=== PATIENT | male | born 1965 | race Hispanic/Latino ===

== ENCOUNTER 2016-12-27 18:01 | Inpatient (IN) | payer OTHER ==
[~2016-12-27] VITALS: Ht 165.1 cm; Wt 65.8 kg
[~2016-12-27 18:01] MED LIST: ALPRAZOLAM0.5 M3 PO; ALPRAZOLAM2 MG PO; CHLORDIAZEPOXID25 M1; LIBRIUM10 MG PO; LIBRIUM25 MG PO; MULTIVITAMIN1 TAB PO; NORCO 325 MG-51 TAB PO; OMEPRAZOLE40 MG PO; OXYCODONE5 MG PO; SIMVASTATIN20 MG PO
--- NOTE | 2016-12-27 18:03 | NUR ---
PER SON, PT HAS BEEN CONFUSED, NOT EATING, DRINKING, OR GETTING OOB X 3-4 WEEKS. STATES HE IS AN ALCOHOLIC, NOT DRINKING X 2 WEEK, FELL 2 WEEKS AGO, C/O PAIN IN R RIBS WITH SOB. TRIAGE NOTE WRITTEN BY MEMO SIMON
--- NOTE | 2016-12-27 18:29 | ED DYSPNEA/ASTHMA COMPLAINT ---
History of Present Illness General Chief Complaint: ETOH/Drug Related Complaint Stated Complaint: GOING THROUGH WITHDRAWL, ETOH AND ?SUBSTANCES Source: patient, family Exam Limitations: confusion Vital Signs & Intake/Output Vital Signs & Intake/Output Vital Signs Date Time Temp Pulse Resp B/P B/P Pulse O2 O2 Flow FiO2 Mean Ox Delivery Rate 12/27 2120 98.1 154 24 156/82 87 Non 100% ReBreather 12/27 2102 87 Non 100% ReBreather 12/27 1808 98.4 132 36 97/61 79 Room Air Allergies Coded Allergies: NO KNOWN ALLERGIES (12/03/14) Triage Note: PER SON, PT HAS BEEN CONFUSED, NOT EATING, DRINKING, OR GETTING OOB X 3-4 WEEKS. STATES HE IS AN ALCOHOLIC, NOT DRINKING X 2 WEEK, FELL 2 WEEKS AGO, C/O PAIN IN R RIBS WITH SOB. Triage Nurses Notes Reviewed? yes HPI: Patient prior in by his son for increasing confusion, weakness, fatigue as well as anorexia for the past 3 weeks. Patient states that he isn't alcohol, or started drinking a few months ago but stopped drinking approximately one month ago. His son concurs that he has not seen him touch any alcohol within the past 3 weeks. Patient states that he has been having chest pain for the past 2 weeks constant. Patient cannot describe the pain. Patient thinks that the pain started when he fell but isn't sure. His son did not witness the fall. Patient states that he has been feeling short of breath for the past few weeks as well. Patient is a smoker however stop smoking 1-1/2 weeks ago because of the shortness of breath and chest pain. Patient has also been having a nonproductive cough for the past few weeks. Patient is a poor historian. Past History Travel History Traveled to [place] past 21 day No Medical History Any Pertinent Medical History? 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 Family History Hx Contributory? No Review of Systems Review of Systems Constitutional: Reports: see HPI, weakness. Respiratory: Reports: see HPI, cough. Cardiovascular: Reports: see HPI, chest pain. Neurological/Psychological: Reports: see HPI, confusion. Physical Exam Physical Exam General Appearance: well developed/nourished, awake, anxious, severe distress Head: atraumatic, normal appearance Eyes: Bilateral: PERRL, EOMI. Ears, Nose, Throat: DRY MUCOSA Neck: normal inspection, supple, full range of motion, JVD Respiratory: crackles (ALL DURÁN), respiratory distress Cardiovascular: normal peripheral pulses, tachycardia Gastrointestinal: normal bowel sounds, soft, non-tender, no organomegaly Extremities: HEALING WOUND RIGHT WALDRON, NO SIGNS OF INFECTION Neurologic/Psych: no motor/sensory deficits, awake Skin: normal color, warm/dry Lymphatic: no anterior cervical linnea Core Measures ACS in differential dx? No Severe Sepsis Present: Yes BC x2: Yes Lactic Acid x2: Yes IV ABX Broad Spectrum: Yes NS/LR Started: Yes Septic Shock Present: No Progress Differential Diagnosis: AMI, bronchitis, CHF, COPD, pulmonary embolism, pneumonia, pneumothorax, rib fracture, SEPSIS Plan of Care: Orders Procedure Date/time Status Admit to inpatient 12/27 2214 Active LACTIC ACID 12/27 2134 Active AMMONIA 12/27 1945 Complete Add-on Test (ER Only) 12/27 193 Active Garcia, Insertion/Removal/Asses 12/27 1906 Active CULTURE,URINE 12/27 1906 Active MAGNESIUM 12/27 1836 Complete BLOOD CULTURE 12/27 1834 Active LACTIC ACID 12/27 1834 Complete ARTERIAL BLOOD GAS (GEN) 12/27 1828 Complete Telemetry/Insurance Billing Specialist 12/27 1828 Active URINE DRUGS OF ABUSE 12/27 1828 Active URINALYSIS 12/27 1828 Active TROPONIN LEVEL 12/27 1828 Complete ETHANOL 12/27 1828 Complete COMPREHENSIVE METABOLIC PANEL 12/27 1828 Complete CBC WITHOUT DIFFERENTIAL 12/27 1828 Complete B-TYPE NATRIURETIC PEP (BNP) 12/27 1828 Complete ACETONE 12/27 1828 Complete EKG 12/27 1828 Active Current Medications Sig/Mimi Start time Last Medication Dose Stop Time Status Admin Ampicillin Sodium/ 3,000 MG ONCE ONE 12/27 2214 UNVr Sulbactam Sodium 12/27 2244 (Unasyn) Sodium Chloride 100 ML (Normal Saline 0.9%) Lorazepam 2 MG ONE ONE 12/27 2199 UNVr (Ativan) 12/27 2200 Lorazepam 2 MG ONE ONE 12/27 2114 UNVr 12/27 (Ativan) 12/27 Cyanocobalamin/ 1 BAG ONCE ONE 12/27 1929 AC 12/27 Thiamine/Pyridoxine 12/28 (Vitamin in I.V.) Dextrose/Water 1,000 ML (D5W 1000) Laboratory Tests 12/27/16 1950: Anion Gap 16, Estimated GFR > 60, BUN/Creatinine Ratio 25.0, Glucose 105 H, Calcium 8.5, Magnesium 2.4 H, Total Bilirubin 0.8, AST 76 H, ALT 70, Alkaline Phosphatase 122, Troponin I 0.01, Mnz-V-[id number] Pept 1060 H, Total Protein 6.6, Albumin 2.9 L, Globulin 3.7, Albumin/Globulin Ratio 0.8 L, Serum Alcohol < 10.0, Acetone Level NEGATIVE 12/27/161944: Ammonia 35 H 12/27/161844: pH 7.43, pCO2 34 L, pO2 61 L, HCO3 22, ABG O2 Sat (Measured) 89.0 L, Carboxyhemoglobin 0.7 L, O2 Concentration % 4.5L, O2 Delivery Method NC, Phlebotomy Draw Site RIGHT RADIAL 12/27/161835: Lactic Acid 7.9 H, CBC w Diff MAN DIFF ORDERED, RBC 3.36 L, MCV 93.3, MCH 30.1 , RDW 14.0, MPV 9.5, Gran % 87.6 H, Lymphocytes % 10.2 L, Monocytes % 1.4 L, Eosinophils % 0.7, Basophils % 0.1, Absolute Granulocytes 7.8 H, Segmented Neutrophils 60, Band Neutrophils 21 H, Absolute Lymphocytes 0.9 L, Lymphocytes 17 L, Absolute Monocytes 0.1 L, Eosinophils 2, Absolute Eosinophils 0.1, Absolute Basophils 0, Platelet Estimate INCREASED, Normocytic RBCs VERIFIED, Hypochromic-Microcytic 1+, PUBS MCHC 32.2 L Microbiology 12/27 1944 BLOOD: Blood Culture - RECD 12/27 1921 BLOOD: Blood Culture - RECD 12/27 1905 URINE ROUT: Urine Culture - ORD Diagnostic Imaging: Viewed by Me: Radiology Read. Discussed w/RAD: Radiology Read. Radiology Impression: PATIENT: MAXIME JOYNER PRESENT AGE: 51 PATIENT ACCOUNT NO: [id number] : 66 LOCATION: [facility] ORDERING PHYSICIAN: MARY ALVAREZ MD SERVICE DATE: 12/27/16 EXAM TYPE: CAT - CT HEAD WO IV CONTRAST EXAMINATION: CT HEAD WITHOUT CONTRAST CLINICAL INFORMATION: Confusion. Fall. COMPARISON: CT head 11/08/2014 TECHNIQUE: Contiguous axial imaging was performed from the skull base to vertex without intravenous administration of contrast. Coronal reformatted images performed at CT scanner DLP: 629.49 mGy-cm FINDINGS: There is no evidence of acute intracranial hemorrhage or territorial infarction. No abnormal mass effect or midline shift is seen. Mancera to white matter differentiation is well preserved. No extra-axial fluid collections are identified. The ventricles are normal in size. There is no abnormal attenuation within the brain parenchyma. The osseous structures and soft tissues are normal. The mastoid air cells and visualized portions of the paranasal sinuses are well aerated. IMPRESSION: No acute intracranial pathology. 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 <Electronically signed in Other Vendor System> SIGNED BY: VIRGINIA CARDOSO MD 12/27/162200 CXR Impression: PATIENT: MAXIME JOYNER PRESENT AGE: 51 PATIENT ACCOUNT NO: [id number] : 66 LOCATION: [facility] ORDERING PHYSICIAN: MARY ALVAREZ MD SERVICE DATE: 12/27/16 EXAM TYPE: RAD - XRY- PORTABLE CHEST XRAY EXAMINATION: PORTABLE CHEST 1 VIEW CLINICAL INFORMATION: HYPOXIA. COMPARISON: 01/21/2006. TECHNIQUE: Portable frontal view of the chest was obtained. FINDINGS: This is a very usual examination. The patient is status post sternotomy and with status post sternotomy on the 2005 study which is unusual for patient's age. There is now in an unusual appearance to the right hemithorax. There appears to be 2 large loculated probable hydropneumothorax components along the lateral aspect of the hemithorax with the more superior one measuring up to 11 cm in size in the more inferior one measuring approximately 11.3 cm in size. This appeared relatively thick walled and although they could represent large cavitary parenchymal lesions the peripheral location suggests this could represent pleural-based collections. There is a focal opacity at the right base possibly due to associated atelectasis and volume loss. There is blunting of the right lateral costophrenic angle possibly due to small layering effusion as well. There is no significant shift of midline structures. Minimal contralateral left basilar atelectasis is seen. No overt edema. No apical pneumothorax. Left humeral neck fracture was noted on the 2014 study. There is associated left mid clavicular fracture as well. Extensive degenerative changes have progressed in the contralateral right AC joint. IMPRESSION: There is a very usual appearance to the right chest. I'm uncertain if these represent large cavitary lesions or large pleural-based loculated hydropneumothoraces. Clinical correlation would be recommended. CT scan of the chest may be helpful for evaluating further if needed. No overt edema. Patient status post sternotomy but this is not changed in appearance from the 2006 study. Additional bony changes as described. 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 <Electronically signed in Other Vendor System> SIGNED BY: JASMIN WILLSON MD 12/27/161927 Initial ED EKG: SINUS TACHYCARDIA WITH NONSPECIFIC st-t CHANGES AND MULTIFOCAL pvcS. Rhythm Strip: sinus tachycardia Comments: Holding off on IV fluids given the crackles heard in all lung durán and hypoxia pending his chest x-ray. Chest x-ray does not show any evidence of pulmonary edema. Aggressive hydration started. Awaiting renal function and then we'll order CT scans of his chest at and pelvis. Would prefer to do those scans with IV contrast. Patient's heart rate and blood pressure improved after IV Ativan. Chest x-ray and CAT scan results and discussed with radiologist. Artifact on the abdominal pelvic CT causing the slight look of free air however the radiologist does not feel that there is free air. His CAT scan of his chest is consistent with aspiration pneumonia with lung abscesses. Departure Departure Disposition: STILL A PATIENT Condition: Critical Clinical Impression Primary Impression: Aspiration pneumonia Secondary Impressions: Acute respiratory failure with hypoxia, Alcohol withdrawal, Lactic acidosis, Lung abscess Referrals: LINNETTE BAUM MD (PCP/Family) Departure Forms: Customer Survey General Discharge Information Admission Note Spoke With: CARISSA SAUNDERS MD Documentation of Exam: Documentation of any treatments & extenuating circumstances including Concerns Regarding Discharge (functional status, medication knowledge or non-compliance, living conditions, etc.) that warrant an admission rather than observation: [ICU ADMISSION, IV ABX, INTERVENTIONAL RADIOLOGY CONSULTATION, PULM CONSULTATION, IV FLUIDS, IV ATIVAN, ID CONULTATION] Critical Care Note Critical Care Note Critical Care Time: mins: (120 MIN)
[2016-12-27 18:46] LABS: ABSOLUTE BASOPHIL COUNT 0 /CUMM (0.0-0.2); ABSOLUTE EOSINOPHIL COUNT 0.1 /CUMM (0.0-0.7); ABSOLUTE GRANULOCYTE CT 7.8 /CUMM (1.4-6.5); ABSOLUTE LYMPH COUNT 0.9 /CUMM (1.2-3.4); ABSOLUTE MONOCYTE COUNT 0.1 /CUMM (0.10-0.60); BASOPHIL % 0.1 % (0.0-2.0); EOSINOPHIL % 0.7 % (0-5); GRANULOCYTE % 87.6 % (42.2-75.2); HEMATOCRIT 31.4 % (42-52); MEAN CORPUSCULAR HGB 30.1 PG (27.0-31.0); MEAN CORPUSCULAR HGB CONC 32.2 G/DL (33.0-37.0); MEAN CORPUSCULAR VOLUME 93.3 FL (80.0-94.0); MEAN PLATELET VOLUME 9.5 FL (7.4-10.4); PLATELET COUNT 432 /CUMM (130-400); RED BLOOD CELL CT 3.36 /CUMM (4.70-6.10); WHITE BLOOD CELL COUNT 8.9 /CUMM (4.8-10.8)
--- NOTE | 2016-12-27 18:52 | NUR ---
PT BOUGHT TO ROOM # 9 FOR EVALUATION AND SEEN BY DR ALVAREZ 20 G SHEYLA PLACED IN RAC. BLOOD DRAWN DIRECTED BY SAME
--- NOTE | 2016-12-27 19:01 | NUR ---
ABG'S PERFORMED BY RESP THERAPIST PT CONNECTED TO CM - ST PT ON 5L O2 VIA N/C.
--- NOTE | 2016-12-27 19:10 | NUR ---
CRITICAL TEST RESULTS [id number] MAXIME JOYNER 51 M TESTS AND RESULTS: LACTIC 7.9 Results received and read back by: JAMES YI Results received date and time: 12/27/161909 The following provider was notified of the results, and read the results back: ANTONIO 1909 Notified date and time: 12/27/16 at 1910
--- NOTE | 2016-12-27 19:28 | RADIOLOGY REPORT ---
EXAMINATION: PORTABLE CHEST 1 VIEW CLINICAL INFORMATION: HYPOXIA. COMPARISON: 01/21/2006. TECHNIQUE: Portable frontal view of the chest was obtained. FINDINGS: This is a very usual examination. The patient is status post sternotomy and with status post sternotomy on the 2005 study which is unusual for patient's age. There is now in an unusual appearance to the right hemithorax. There appears to be 2 large loculated probable hydropneumothorax components along the lateral aspect of the hemithorax with the more superior one measuring up to 11 cm in size in the more inferior one measuring approximately 11.3 cm in size. This appeared relatively thick walled and although they could represent large cavitary parenchymal lesions the peripheral location suggests this could represent pleural-based collections. There is a focal opacity at the right base possibly due to associated atelectasis and volume loss. There is blunting of the right lateral costophrenic angle possibly due to small layering effusion as well. There is no significant shift of midline structures. Minimal contralateral left basilar atelectasis is seen. No overt edema. No apical pneumothorax. Left humeral neck fracture was noted on the 2014 study. There is associated left mid clavicular fracture as well. Extensive degenerative changes have progressed in the contralateral right AC joint. IMPRESSION: There is a very usual appearance to the right chest. I'm uncertain if these represent large cavitary lesions or large pleural-based loculated hydropneumothoraces. Clinical correlation would be recommended. CT scan of the chest may be helpful for evaluating further if needed. No overt edema. Patient status post sternotomy but this is not changed in appearance from the 2006 study. Additional bony changes as described.
--- NOTE | 2016-12-27 19:40 | NUR ---
IV OF N/S STARTED W/O X 3 LITERS
--- NOTE | 2016-12-27 20:10 | NUR ---
22 G SHEYLA PLACED IN LEFT WRIST BLOOD CULTURES DRAWN DIRECTED BLOOD DRAWN FOR AMMONIA LEVEL PCXR DONE
--- NOTE | 2016-12-27 21:35 | NUR ---
PT MEDICATED WITH 2 MG ATIVAN IVP AND STARTED ON BANANNA BAG DIRECTED.
--- NOTE | 2016-12-27 22:01 | CT SCAN REPORT ---
EXAMINATION: CT HEAD WITHOUT CONTRAST CLINICAL INFORMATION: Confusion. Fall. COMPARISON: CT head 11/08/2014 TECHNIQUE: Contiguous axial imaging was performed from the skull base to vertex without intravenous administration of contrast. Coronal reformatted images performed at CT scanner DLP: 629.49 mGy-cm FINDINGS: There is no evidence of acute intracranial hemorrhage or territorial infarction. No abnormal mass effect or midline shift is seen. Mancera to white matter differentiation is well preserved. No extra-axial fluid collections are identified. The ventricles are normal in size. There is no abnormal attenuation within the brain parenchyma. The osseous structures and soft tissues are normal. The mastoid air cells and visualized portions of the paranasal sinuses are well aerated. IMPRESSION: No acute intracranial pathology.
--- NOTE | 2016-12-27 22:11 | CT SCAN REPORT ---
EXAMINATION: CT CHEST, ABDOMEN AND PELVIS WITH CONTRAST. CLINICAL INFORMATION: SEPSIS: HYPOXIA, ABN CXR. COMPARISON: Chest x-ray earlier today. TECHNIQUE: Multidetector volumetric imaging was performed from the thoracic inlet through the pubic symphysis following administration of 95 ml of Optiray 320. Sagittal and coronal reformatted images were obtained on the technologist workstation. DLP: 384 mGy-cm FINDINGS: CHEST: LUNG: This is a markedly abnormal study. Focal consolidation in the right base is seen with air bronchograms and more complex irregular air densities in the medial aspect of the right lower lobe concerning for more focal abscess as these irregular air collections do not definitively following the expected course of the bronchi. There is more patchy airspace disease in the contralateral left base. Likely loculated hydropneumothorax secondary to empyema described below MEDIASTINUM: The mediastinum is unremarkable. The central vascular structures are unremarkable. No hilar or mediastinal lymphadenopathy. PERICARDIUM/PLEURA: Complex loculated air-filled thick-walled collections in the right pleural surface with air-fluid levels suggesting loculated complex collection is likely secondary to empyema in this setting. These do not appear to represent thick-walled parenchymal lung cavities but more likely loculated air-fluid components within the pleural space adjacent to this very abnormal lung parenchyma. CHEST WALL/AXILLA: Unremarkable. ABDOMEN/PELVIS: PERITONEAL SPACE:No significant free air or free fluid identified. LIVER, GALLBLADDER, BILIARY TREE: The liver is normal in size, shape, and attenuation. No focal hepatic lesion or biliary ductal dilatation is present. The gallbladder is unremarkable with no evidence of radiopaque gallstones, gallbladder wall thickening, or obvious pericholecystic inflammatory changes. PANCREAS: Unremarkable. SPLEEN: Unremarkable. ADRENAL GLANDS: Unremarkable. KIDNEYS AND URETERS: The kidneys are normal in size, shape, and attenuation. No hydronephrosis, hydroureter, or calculi seen. No perinephric stranding. BLADDER: Decompressed with Garcia catheter GASTROINTESTINAL TRACT: Scattered colonic diverticulosis but no evidence for diverticulitis. Normal-appearing appendix in the right lower quadrant. Colon is relatively decompressed. Small bowel unremarkable ABDOMINAL WALL: No significant hernia is appreciated. LYMPHOVASCULAR STRUCTURES: Vascular calcification in the aorta iliac system. PELVIC VISCERA: Unremarkable. OSSEUS STRUCTURES: Right hip hardware. No acute bony abnormality. Patient is status post sternotomy. IMPRESSION: Very abnormal appearance to the chest. There is complex consolidation and irregular aeration more so in the right base with air bronchograms and more irregular air collection suggesting possible parenchymal lung abscess in the medial aspect of the right lower lobe. There is associated complex fluid and air-fluid levels in loculated pockets of the right pleural surface likely secondary to empyema in this setting. Clinical correlation would be needed.
--- NOTE | 2016-12-27 22:16 | NUR ---
PT TO AND BACK FROM CT SCAN.
--- NOTE | 2016-12-27 22:25 | NUR ---
HR DECREASED FROM 154 TO 133 AFTER ADMINISTRATION OF ATIVAN PT MEDICATED WITH ADDITIONAL 2 MG ATIVAN IVP AND MEDICATED WITH 3 G UNASYN IN 100 ML OVER 30 MINUTES
--- NOTE | 2016-12-27 22:44 | NUR ---
PT INCONTINENT OF STOOL. PT CL;EANED, TURNED, CHANGED AND RE-POSITIONED.
[2016-12-27] MEDS ORDERED: CHLORDIAZEPOXID25 M3 PO (23:16)
--- NOTE | 2016-12-27 23:43 | History & Physical ---
ROSY KATE 12/27/16 2342: General Information and HPI Source of Information: patient, family Exam Limitations: no limitations History of Present Illness: He is 51-year-old man with past medical history of anxiety/depression, insomnia, alcohol abuse/binge drinking and smoking (10 cig/day, quit 2 weeks ago) presented to ER with complaint of fatigue, generalized weakness, productive cough with yellow phlegm, chills, bad breath, anorexia and some weight loss. Information was obtained from both patient and his son. According to son he went to [place] alone about 3 weeks ago for few days and since he has come back he is not feeling well. Patient reports chest pain with cough, SOB and palpitations. He also reports PND but no orthopnea. He denies hemoptysis, nausea, vomiting, abdominal pain, urinary symptoms, leg swelling. He reports recent diarrhea and stool was soft and nonbloody. Denies sick contacts around him. According to son this morning he was vomiting after eating his breakfast. Son is not sure whether he was using illicit drugs or not. Patient lives with his family, used to work in [employer] for 28 years, sexually active and monogamous with his . Family history of hypertension and stroke. No family history of cancer. Patient also has history of abusing his psych medications. According to patient he has lost almost 13 pounds in 3 weeks and it was unintentional. He denies night sweats. 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 MOTHER (HTN). Psychosocial History Where do you live? Home Who Do You Live With? family Services at Home: None Primary Language: German Smoking Status: Former Smoker ETOH Use: alcoholic Illicit Drug Use: denies illicit drug use Review of Systems Review of Systems Constitutional: Reports: see HPI. Exam & Diagnostic Data Last 24 Hrs of Vital Signs/I&O Vital Signs Date Time Temp Pulse Resp B/P B/P Pulse O2 O2 Flow FiO2 Mean Ox Delivery Rate 12/27 2358 130 22 108/64 99 Non 100% ReBreather 12/27 2222 98.1 133 24 123/67 98 Non 100% ReBreather 12/27 2121 98.1 154 24 156/82 87 Non 100% ReBreather 12/27 2103 87 Non 100% ReBreather 12/27 1809 98.4 132 36 97/61 79 Room Air Intake & Output 12/28 0800 12/28 0000 12/27 1600 Intake Total 1000 Output Total 350 Balance 650 Intake, IV 1000 Output, Urine 350 Patient 155 lb Weight Weight Reported by Patient Measurement Method Physical Exam General Appearance Alert, Oriented X3, Cooperative, Mild Distress Skin left leg abrasion lateral side, right knee abrasions HEENT dry mucous membranes Cardiovascular tachy Lungs ronchi right side of chest Abdomen Soft, No Tenderness, mild distended Neurological Normal Speech, Strength at 5/5 X4 Ext, Sensation Intact, Cranial Nerves 3-12 NL Extremities No Edema, No Tenderness/Swelling Last 24 Hrs of Labs/Bakari: Laboratory Tests 12/27/16 1950: Anion Gap 16, Estimated GFR > 60, BUN/Creatinine Ratio 25.0, Glucose 105 H, Calcium 8.5, Magnesium 2.4 H, Total Bilirubin 0.8, AST 76 H, ALT 70, Alkaline Phosphatase 122, Troponin I 0.01, Gnx-R-Vxrxkplyfic Pept 1060 H, Total Protein 6.6, Albumin 2.9 L, Globulin 3.7, Albumin/Globulin Ratio 0.8 L, TSH Pending, Free T4 Pending, Thyroxine (T4) Pending, Serum Alcohol < 10.0, Acetone Level NEGATIVE 12/27/16 194: Ammonia 35 H 12/27/161844: pH 7.43, pCO2 34 L, pO2 61 L, HCO3 22, ABG O2 Sat (Measured) 89.0 L, Carboxyhemoglobin 0.7 L, O2 Concentration % 4.5L, O2 Delivery Method NC, Phlebotomy Draw Site RIGHT RADIAL 12/27/16 183: Lactic Acid 7.9 H, CBC w Diff MAN DIFF ORDERED, RBC 3.36 L, MCV 93.3, MCH 30.1 , RDW 14.0, MPV 9.5, Gran % 87.6 H, Lymphocytes % 10.2 L, Monocytes % 1.4 L, Eosinophils % 0.7, Basophils % 0.1, Absolute Granulocytes 7.8 H, Segmented Neutrophils 60, Band Neutrophils 21 H, Absolute Lymphocytes 0.9 L, Lymphocytes 17 L, Absolute Monocytes 0.1 L, Eosinophils 2, Absolute Eosinophils 0.1, Absolute Basophils 0, Platelet Estimate INCREASED, Normocytic RBCs VERIFIED, Hypochromic-Microcytic 1+, PUBS MCHC 32.2 L Microbiology 12/28 0004 LOWER RESP: Respiratory Culture - ORD 12/28 0004 LOWER RESP: Gram Stain - ORD 12/28 0002 STOOL: Stool Culture - ORD 12/27 1944 BLOOD: Blood Culture - RECD 12/27 1921 BLOOD: Blood Culture - RECD 12/27 1905 URINE ROUT: Urine Culture - ORD Diagnostic Data EKG Results Sinus tachycardia with PVCs. No acute ST-T wave changes. QTc 472 CXR Results large cavitary lesions or large pleural-based loculated hydropneumothoraces. Other Results CT CHEST complex consolidation and irregular aeration more so in the right base with air bronchograms and more irregular air collection suggesting possible parenchymal lung abscess in the medial aspect of the right lower lobe. There is associated complex fluid and air -fluid levels in loculated pockets of the right pleural surface likely secondary to empyema. Assessment/Plan Assessment: He is 51-year-old man with past medical history of anxiety/depression, insomnia, alcohol abuse/binge drinking and smoking (10 cig/day, quit 2 weeks ago) presented to ER with complaint of fatigue, generalized weakness, productive cough with yellow phlegm, chills, bad breath, anorexia and some weight loss. PROBLEM LIST 1. Severe sepsis secondary to possible aspiration pneumonia/lung abscess or empyema. Other differentials could be fungal infection versus TB vs HIV related lung infection 2. Lactic acidosis 3. Acute hypoxic respiratory failure 2/2 possible aspiration pneumonia/lung abscess or empyema 4. History of alcohol abuse 5. Transaminitis/elevated Ammonia ? 2/2 ETOH abuse 6. Elevated ProBNP/Tachycardia PLAN * Close ICU monitoring * Low threshold for intubation if saturations drop * Continue TRC nebs * Continue Unasyn for now. ? antifungal * Pulm consult and ID consult in a.m. * We will also involve cardiothoracic surgery * Glass culture * U tox * Trend lactic acid * Consider testing for TB * Check for HIV and hepatitis panel * Check TFTs * ECHO * CIWA protocol and IV Ativan as needed per CIWA * Banana bag * Gentle IV hydration * We'll keep patient nothing by mouth for now * ? psych consult * Swallow evaluation in a.m. * PT evaluation and treatment * Mild pain pathway * Alps for DVT prophylaxis. No pharmacological DVT prophylaxis for now in anticipation for any possible intervention * Full code As Ranked By This Provider Problem List: 1. Lung abscess 2. Lactic acidosis 3. Acute respiratory failure with hypoxia Core Measures/Miscellaneous Acute Coronary Syndrome ACS Diagnosis: No Cerebrovascular Accident CVA/TIA Diagnosis: No Congestive Heart Failure CHF Diagnosis: No VTE (View Protocol) VTE Risk Factors: Acute medical illness, Age > 40 [facility] prophylaxis d/t: No contraindications No VTE Pharm Prophylaxis d/t: Surgical contraindication VTE Diagnosis: No VTE Type: NONE VTE Confirmed by (Test): NONE Sepsis (View Protocol) Severe Sepsis Present: Yes BC x2: Yes Lactic Acid x2: Yes IV ABX Broad Spectrum: Yes NS/LR Started: Yes Septic Shock Septic Shock Present: No Miscellaneous Documentation Attending Case Discussed With: SHIV SAUNDERS MDMegan Primary Care Physician: LINNETTE BAUM MD Patient sees these Specialists psych Level of Patient Care: Critical Care (CRI) [facility] 12/28/16 0243: Attending MD Review Statement Attending Statement Attending MD Statement: examined this patient, discuss w/resident/PA/SERVICE DELIVERY CONSULTANT, agreed w/resident/PA/SERVICE DELIVERY CONSULTANT Attending Assessment/Plan: 51 yo M smoker, with h/o alcohol abuse, multiple DT's, pancreatitis, alcoholic hepatitis, anxiety/depression, s/p ASD repair, is brought in by son for evaluation of 2-3 week h/o fatigue, weakness, confusion, poor appetite, weight loss (13 lbs), dyspnea and cough productive of yellow/dark phlegm. Patient reports right sided chest discomfort with coughing, he denies choking or coughing on food. His last drink was on December 09, last detox at [facility] was 2006 , patient denies any recent detoxes or seizures. Son reports patient was away at [place] 3 weeks ago and since he returned, he has been unwell. C/o nausea, vomiting, and few episodes of diarrhea. C/o diffuse abdominal discomfort. Vitals: Tmax 103.8, tachycardic to 130-140's, BP 111/57, sats 79% on RA --> 87- 95% on 100% NRB. Exam: awake, alert, oriented x2, in moderate respiratory distress, lethargic, dry mucous membranes, neck supple, PERRL, Skin warm and dry , Capillary refill ~ 2 secs. Chest right sided reduced air entry with scattered rhonchi and crackles (b/l), Heart S1S2 tachycardic, Abd soft, NT, BS+, LE: no edema. Left lateral calf abrasion+. Right knee lateral aspect open wound++. Labs: no leukocytosis, normocytic anemia, bands 21, BUN 30, glucose 105, lactic acid 7.9 --> 7.5, Mag 2.4, AST 76, trop neg, albumin 2.9, proBNP 1060, thyroid functions normal. Alcohol < 10, acetone neg. AB.43/34/61/22. UA and Utox pending. EKG: Sinus tachycardia, PVC's, Qtc 472. CXR: large cavitary lesions or large pleural based loculated hydropneumothoraces. CT C/A/P: complex consolidation and parenchymal lung abscess in the medial aspect of right lower lobe. Associated complex fluid and air fluid levels in loculated pockets of the right pleural surface likely secondary to empyema. Head CT neg. 1. Severe sepsis, lactic acidosis and acute hypoxemic respiratory failure in the setting of right lung pneumonia likely aspiration with lung abscess and empyema. ICU admit, panculture, check urine legionella and strep Ag, check HIV, hepatitis panel and AFB sputum. TRC nebs, sputum cultures, chest physiotherapy, NPO, low threshold for intubation. Initiate IV Unasyn and Vancomycin for now. Obtain ID consult to help with choice of antibiotics. Gentle IV fluids. Trend lactic acid. CRCU consult (Dr. Rachel) in AM. We need to consult CT surgery vs. IR for need for Pigtail catheter and ?fibrinolytic therapy. Serial EKG and troponin to rule out ACS. Obtain Echo to assess LV function. Check INR. 2. Altered mental status, confusion likely delirium in the setting of acute infection. Alcohol withdrawal delirium seems less likely as patient reports last drink was on December 09, although history is very unreliable. We will monitor CIWA protocol, neurochecks, IV ativan per CIWA and give banana bag. Await UA and urine tox screen. 3. Malnutrition, hypoalbuminemia. GI ppx IV PPI. DVT ppx Alps (in anticipation for need of procedure in AM). Full code. 6AM: 3rd set of troponin is elevated at 0.20, awaiting EKG to assess for acute changes. ?demand ischemia. Will get Echo and obtain cardio consult. Aspirin to be given. TTS > 55 mins
--- NOTE | 2016-12-27 23:45 | NUR ---
PT ENDORSED TO [facility]ON. CLINICAL STATUS UNCHANGED, ALL V.S.S.
--- NOTE | 2016-12-28 00:45 | NUR ---
IINCONTINENT OF LOOSE LIQ BROWN STOOL. VISIBLY SHAKING. CM = ST 150
--- NOTE | 2016-12-28 01:15 | NUR ---
[facility] GIVEN LINENS CHANGED. PO TYLENOL AND ATIVAN IV GIVEN. DR VELEZ AWARE.
[2016-12-28 01:19] VITALS: BP 174/79
--- NOTE | 2016-12-28 01:58 | NUR ---
CRITICAL TEST RESULTS [id number] MAXIME JOYNER 51 M TESTS AND RESULTS: LACTIC = 7.5 Results received and read back by: ANANYA HENNING Results received date and time: 12/28/16 0200 The following provider was notified of the results, and read the results back: DR GALLEGOS Notified date and time: 12/28/16 at 0201
--- NOTE | 2016-12-28 02:35 | NUR ---
PT GOING TO ROOM 110-1
--- NOTE | 2016-12-28 02:36 | NUR ---
DR GARCIA NOTIFIED OF HR, TEMP AND REPEAT LACTIC ACID. IV FLUID ORDER CHANGE GIVEN
--- NOTE | 2016-12-28 02:50 | NUR ---
REPORT ATTEMTED ALFRED WILBURN UNABLE TO TAKE REPORT AT THIS TIME.
--- NOTE | 2016-12-28 03:05 | NUR ---
IV TYLENOL HELD AT THIS TIME. TORADOL 30MG IV GIVEN
--- NOTE | 2016-12-28 03:16 | Admission Certification ---
Admission Certification Certification Statement - As attending physician, I certify that at the time of - admission, based on clinical presentation, severity of - symptoms, need for further diagnostic testing and - therapeutic interventions, and risk of adverse outcomes - without in-hospital treatment, in my clinical assessment, - this patient requires an acute hospital stay for a minimum - of two nights or longer. I have also considered psychsocial - factors such as support system, advanced age, financial - issues, cognitive issues, and failed out-patient treatments, - past re-admission history, safety of patient, and lack of - compliance as applicable. Specific rationale supporting this admission is: Acute hypoxemic respiratory failure, empyema.
[2016-12-28 05:15] LABS: ABSOLUTE BASOPHIL COUNT 0 /CUMM (0.0-0.2); ABSOLUTE EOSINOPHIL COUNT 0 /CUMM (0.0-0.7); ABSOLUTE GRANULOCYTE CT 1.6 /CUMM (1.4-6.5); ABSOLUTE LYMPH COUNT 0.4 /CUMM (1.2-3.4); ABSOLUTE MONOCYTE COUNT 0 /CUMM (0.10-0.60); BASOPHIL % 0 % (0.0-2.0); EOSINOPHIL % 0.2 % (0-5); GRANULOCYTE % 77.3 % (42.2-75.2); MEAN CORPUSCULAR HGB 30.8 PG (27.0-31.0); MEAN CORPUSCULAR HGB CONC 33.1 G/DL (33.0-37.0); MEAN CORPUSCULAR VOLUME 93.1 FL (80.0-94.0); MEAN PLATELET VOLUME 9.6 FL (7.4-10.4); PLATELET COUNT 317 /CUMM (130-400); RBC DISTRIBUTION WIDTH 13.6 % (11.5-14.5); RED BLOOD CELL CT 2.73 /CUMM (4.70-6.10)
[2016-12-28 05:17] LABS: PT 20.1 SEC (9.4-12.5)
[2016-12-28 05:39] LABS: HEMATOCRIT 25.4 % (42-52)
[2016-12-28 06:00] VITALS: BP 92/60
--- NOTE | 2016-12-28 07:22 | PN- Resident CRCU ---
Subjective HPI/CRCU Issues: I saw the pt today at bedside. He is ON 100% NON REBREATHER MASK. He complain of chest pain while taking a breath, denies headache, vomitting ,abd pain , diarrhoa. He takes his mask on off while examining him, which makes him more tachypnoeic. He is lying flat on his bed, tachypnic with a saturation of 94% and rr-40. 24 Hour Events: Central line was placed on 12/28/16 at 11.30 am Objective Vital Signs & I&O Last 8 Hrs of Vitals and I&O: Vital Signs Date Time Temp Pulse Resp B/P B/P Pulse O2 O2 Flow FiO2 Mean Ox Delivery Rate 12/28 08 97.8 110 46 94/66 12/28 0800 92 Non 100% ReBreather 12/28 0800 97.8 110 46 94/66 92 Non 100% ReBreather 12/28 0600 112 40 92/60 12/28 0555 89 Non 100% ReBreather 12/28 0400 92 Non 100% ReBreather 12/28 0355 92 Non 100% ReBreather 12/28 0319 103.2 134 28 116/72 95 Non 100% ReBreather 12/28 0230 103.4 150 12/28 0157 103.8 143 24 111/57 99 Non ReBreather 12/28 0128 103.2 12/28 0119 103.2 150 22 174/79 12/28 0107 103.2 150 20 174/79 94 Non 100% ReBreather 12/27 2358 130 22 108/64 99 Non 100% ReBreather 12/27 2222 98.1 133 24 123/67 98 Non 100% ReBreather 12/27 2121 98.1 154 24 156/82 87 Non 100% ReBreather 12/27 2103 87 Non 100% ReBreather 12/27 1809 98.4 132 36 97/61 79 Room Air Exam General Appearance: well developed/nourished, awake, moderate distress, thin, he is tachypnec on 100% rebreather mask Head: normal appearance Neck: normal inspection, supple, full range of motion, JVD Respiratory: decreased breath sounds- rt lung Cardiovascular: regular rate/rhythm Gastrointestinal: soft, non-tender, no organomegaly Extremities: normal inspection Skin: intact, normal color Back: normal inspection Central Line Site: RIJ Date In: 12/28/16 IV Drips IV Drips: D5 N5 Nutrition Nutrition: NPO Current Medications: Current Medications Sig/Mimi Start time Last Medication Dose Route Stop Time Status Admin Acetaminophen 0 .STK-MED ONE 12/28 0300 DC IV Acetaminophen 1,000 MG ONCE ONE 12/28 0245 DC N/A 1 UNIT IV 12/28 0259 Acetaminophen 0 .STK-MED ONE 12/28 0130 DC PO Acetaminophen 650 MG Q6P PRN 12/27 2345 AC 12/28 PO 0128 Ampicillin Sodium/ 3,000 MG Q6 12/28 0600 DC 12/28 Sulbactam Sodium IV 0627 Sodium Chloride 100 ML Ampicillin Sodium/ 0 .STK-MED ONE 12/27 2216 DC Sulbactam Sodium .ROUTE Ampicillin Sodium/ 3,000 MG ONCE ONE 12/27 2214 DC 12/27 Sulbactam Sodium IV 12/27 2244 2222 Sodium Chloride 100 ML Cyanocobalamin/ 1 BAG DAILY@2100 12/28 2100 AC Thiamine/Pyridoxine IV Dextrose/Water 1,000 ML Cyanocobalamin/ 1 BAG ONCE ONE 12/27 1930 DC 12/27 Thiamine/Pyridoxine IV 12/28 0329 2132 Dextrose/Water 1,000 ML Dextrose/Sodium 1,000 ML Q10H 12/28 0245 AC 12/28 Chloride IV 0245 Dextrose/Sodium 1,000 ML .[id number] 12/27 2345 DC 12/28 Chloride IV 0128 Famotidine 20 MG BID 12/28 1000 AC IV Ketorolac 30 MG ONCE ONE 12/28 0315 DC 12/28 Tromethamine IV 12/28 0316 0305 Ketorolac 0 .STK-MED ONE 12/28 0310 DC Tromethamine .ROUTE Lorazepam 0 .STK-MED ONE 12/28 013 DC .ROUTE Lorazepam 0 Q1P PRN 12/28 0015 AC 12/28 IV 0128 Lorazepam 0 .STK-MED ONE 12/27 2216 DC .ROUTE Lorazepam 2 MG ONE ONE 12/27 2199 DC 12/27 IV 12/27 Lorazepam 0 .STK-MED ONE 12/28 2123 DC .ROUTE Lorazepam 2 MG ONE ONE 12/27 2114 DC 12/27 IV 12/27 Meropenem 1 GM IQ8 12/28 0945 AC IV Sodium Chloride 1,000 ML BOLUS ONE 12/27 193 DC 12/27 IV 12/27 Sodium Chloride 1,000 ML BOLUS ONE 12/27 1930 DC 12/27 IV 12/27 Sodium Chloride 1,000 ML BOLUS ONE 12/27 1930 DC / IV 12/27 Vancomycin HCl 1,000 MG Q12H 12/28 0600 AC 12/28 Sodium Chloride 250 ML IV 0741 Antibiotics Antibiotic: MEROPENAM,VANCOMYCIN Day #: 1 IV/PO? IV CXR Findings: 12/28/16 IMPRESSION: There is a very usual appearance to the right chest. I'm uncertain if these represent large cavitary lesions or large pleural-based loculated hydropneumothoraces. Clinical correlation would be recommended. CT scan of the chest may be helpful for evaluating further if needed. No overt edema. Patient status post sternotomy but this is not changed in appearance from the 2006 study. Additional bony changes as described. CT Scan Findings: IMPRESSION: Very abnormal appearance to the chest. There is complex consolidation and irregular aeration more so in the right base with air bronchograms and more irregular air collection suggesting possible parenchymal lung abscess in the medial aspect of the right lower lobe. There is associated complex fluid and air-fluid levels in loculated pockets of the right pleural surface likely secondary to empyema in this setting. Clinical correlation would be needed. Radiology Findings: CT ABD/PELVIS Very abnormal appearance to the chest. There is complex consolidation and irregular aeration more so in the right base with air bronchograms and more irregular air collection suggesting possible parenchymal lung abscess in the medial aspect of the right lower lobe. There is associated complex fluid and air-fluid levels in loculated pockets of the right pleural surface likely secondary to empyema in this setting. Clinical correlation would be needed. Impression/Plan Impression/Problem List Impression: He is 51-year-old man with past medical history of anxiety/depression, insomnia, alcohol abuse/binge drinking and smoking (10 cig/day, quit 2 weeks ago) presented to ER with complaint of fatigue, wt loss, generalized weakness, productive cough with yellow phlegm, chills, bad breath, anorexia and some weight loss. Since he came in he has been tachypneic and has been hypoxic, pt was admitted in ICU for close monitoring. PLAN: So far hemodynamically stable but tachycardic and tachypneic. VITALS:rr-45,spo2-94, bp112/70, hr-113. * npo * hold aspirin and blood thinners * abg * central line * stat chest x ray and ABG. * Urgent CTS consult pt may need chest tube or may need an urgent SURG if not IR guided pig tail depending on the surg opinion * Intubate if worse * PRn lorazepam * vancomycin and meropenam * IR consut,CTS consult * May need higher level of care with invasive work up need for surg * Glass cultures f/u *
[2016-12-28 08:00] VITALS: BP 94/66
--- NOTE | 2016-12-28 08:21 | NUR ---
PHYSICAL THERAPY: HOLD ON EVAL FOR TODAY PER RN
--- NOTE | 2016-12-28 10:17 | NUR ---
RECEIVED PATIENT AT 0800 LETHARGIC/AROUSABLE, ANSWERS SOME QUESTIONS, ORIENTED TO PERSON/PLACE. APPROPRIATELY/SOME SLURRED SPEECH (DRY MOUTH). FOLLOWS COMMANDS, MOVES ALL EXTREMETIES WEAKLY. 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 SBP 110S-130S. PATIENT C/O SOME MIDSTERNAL CHEST PAIN 3/10 (LUNG ABCESS/FISTULA). PATIENT ON 100% NONREBREATHER SATTING 92-94%. CLEAR BREATH SOUNDS HEARD IN THE UPPER, DIMINISHED TO THE LOWER LOBES W/ SOME FINE CRACKLES TO THE LEFT BASE UPON AUSCULTATION. ABDOMEN SOFT/DISTENDED/NONTENDER, +BS, TURPIN IN PLACE DRAINING CLEAR YELLOW URINE. PT IS NPO. DENIES GI COMPLAINTS. BANANA BAG RUNNING AT 125 MLS/HR AND D5NS RUNNING AT 100 MLS/HR. VANCO GIVEN AND TO GIVE MEROPENUM. HOUSESTAFF TO PLACE CENTRAL LINE PER DR. HALE. ULCER TO OUTER R KNEE, EDGES WELL APPROXIMATED, WOUND BED IS COMPLETED RED/PINK CLOSED. SCARRING TO BUTTOCKS/R HIP/MIDLINE CHEST. SKIN IS CLAMMY/PALE. AFEBRILE. CONTINUING TO MONITOR CLOSELY. GIVEN EMOTIONAL REASSURANCE. ALPS IN PLACE.
--- NOTE | 2016-12-28 10:22 | PN- Att Addend ---
Attending Addendum Attending Brief Note [facility] [place] [place] [address] [facility] [place] [address] MEDICAL RECORDS DEPARTMENT CONSULTATION - [facility] PATIENT: YARA OROZCO PRESENT AGE: 60 PATIENT ACCOUNT NO: [id number] DATE OF : [birth year] ADMIT/SERVICE DATE: 12/28/16 ATTENDING PHYSICIAN: CHIP CARLOS,[facility] PATIENT CARE UNIT CONFIDENTIAL COPY General Information and HPI Consulting Request Date of Consult: 12/28/16 Requested By: med team History of Present Illness: History from the ER He is 51-year-old man with past medical history of anxiety/depression, insomnia, alcohol abuse/binge drinking and smoking (10 cig/day, quit 2 weeks ago) presented to ER with complaint of fatigue, generalized weakness, productive cough with yellow phlegm, chills, bad breath, anorexia and some weight loss. Information was obtained from both patient and his son. According to son he went to [place] alone about 3 weeks ago for few days and since he has come back he is not feeling well. Patient reports chest pain with cough, SOB and palpitations. He also reports PND but no orthopnea. He denies hemoptysis, nausea, vomiting, abdominal pain, urinary symptoms, leg swelling. He reports recent diarrhea and stool was soft and nonbloody. Denies sick contacts around him. According to son this morning he was vomiting after eating his breakfast. Son is not sure whether he was using illicit drugs or not. Patient lives with his family, used to work in [employer] for 28 years, sexually active and monogamous with his . Family history of hypertension and stroke. No family history of cancer. Patient also has history of abusing his psych medications. According to patient he has lost almost 13 pounds in 3 weeks and it was unintentional. He denies night sweats. Since he came in he has been tachypneic and has been hypoxic and pt has not been ventilating and in rep insuff So far hemodynamically stable but tachycardic CTS contacted and pt may need higher level of care Allergies/Medications Allergies: Coded Allergies: Anesthetics - Amide Type (N/V 12/27/16) Anesthetics - Laurita Type- Parabens (N/V 12/27/16) Penicillins (RASH 12/27/16) morphine (N/V 12/27/16) Home Med List: Alprazolam 0.5 MG TABLET 0.5 TAB PO PRN ANXIETY (Reported) Bupropion HCl (Bupropion XL) 300 MG TAB.ER.24H 1 TAB PO QPM MENTAL HEALTH ( Reported) Cholecalciferol (Vitamin D3) (Vitamin D) 2,000 UNIT TABLET 2 TAB PO QPM SUPPLEMENT (Reported) Diclofenac Sodium 75 MG TABLET.DR 1 TAB PO BID PRN PAIN (Reported) Eszopiclone 3 MG TABLET 1 TAB PO QPM SLEEP (Reported) Fish Oil/Borage/Flax/Om3,6,9#1 ([place] 3-6-9 Complex Softgel) (Unknown Strength) CAPSULE (Unknown Dose) PO QPM SUPPLEMENT (Reported) Lactobacillus Acidophilus (Probiotic) 10 BILLION CELL CAPSULE 1 TAB PO QPM PROBIOTIC (Reported) Sertraline HCl 100 MG TABLET 1.5 TAB PO QPM MENTAL HEALTH (Reported) Verapamil HCl 80 MG TABLET 1 TAB PO QPM MIGRAINES (Reported) Review of Systems Review of Systems Constitutional: Reports: see HPI. Past History Travel History Traveled to [place] past 21 day No Medical History Blood Transfusion Hx: Yes Type of Reaction: Fever Neurological: dizziness, migraine, TIA EENT: NONE Cardiovascular: hyperlipidemia Respiratory: NONE Gastrointestinal: colitis, diverticulitis, peptic ulcer disease Hepatic: NONE Renal: NONE Musculoskeletal: disk herniation Psychiatric: anxiety, chronic pain disorder, depression Endocrine: NONE Blood Disorders: NONE Cancer(s): NONE GUIDE PLANT/Reproductive: NONE Surgical History Surgical History: hysterectomy, NECK-LOLLY WITH DISC CARPAL TUNNER R&L HAND Family History Relations & Conditions If Any: BROTHER (Crohn's disease). FH: Crohn's disease Relation not specified for: Hypertension in father Maternal family history of congestive heart failure Psychosocial History Where Do You Live? Home Services at Home: None Smoking Status: Current Everyday Smoker ETOH Use: occasional use Illicit Drug Use: denies illicit drug use Exam & Diagnostic Data Last 24 Hrs of Vital Signs/I&O Vital Signs Date Time Temp Pulse Resp B/P B/P Pulse O2 O2 Flow FiO2 Mean Ox Delivery Rate 12/28 0800 100 12/28 0800 97.2 61 20 120/70 100 Room Air Room Air 07 0612 97.2 61 20 120/70 100 07/ 0604 70 18 120/72 99 Room Air 12/28 0400 60 18 110/70 98 Room Air 12/28 0222 65 18 128/72 98 Room Air 12/28 0110 98.0 64 18 130/62 100 Room Air 12/27 2337 67 20 134/94 98 Nasal 1.0L Cannula 12/274 141/68 12/27 2324 77 18 151/86 99 Room Air 12/27 2147 73 18 144/82 97 Nasal 1.0L Cannula 12/28 2139 78 18 174/82 99 Room Air 12/27 2125 105 20 141/83 97 Room Air 12/28 2119 99 Room Air 12/28 2119 97.8 80 20 146/73 99 Room Air 12/27 2104 96.7 77 18 151/86 99 Room Air Intake & Output 12/28 1600 12/28 0800 12/28 0000 Intake Total 110 Output Total 780 60 Balance -780 50 Intake, IV 50 Intake, Oral 60 Intake, Other Output, Urine 780 60 Patient 138 lb 122 lb Weight Weight Reported by Patient Bed scale Measurement Method Last 48 Hrs of Labs/Bakari: Laboratory Tests 12/28/16 0602: Anion Gap 9, Estimated GFR 51 L, BUN/Creatinine Ratio 17.3, Triglycerides 125, Cholesterol 246 H, LDL Cholesterol, Calc 163 H, HDL Cholesterol 58, Cholesterol/HDL Ratio 4, CBC w Diff NO MAN DIFF REQ, RBC 3.83 L, MCV 91.9, MCH 30.7, RDW 13.1, MPV 8.2, Gran % 56.7, Lymphocytes % 33.6, Monocytes % 4.9, Eosinophils % 4.2, Basophils % 0.6, Absolute Granulocytes 4.6, Absolute Lymphocytes 2.7, Absolute Monocytes 0.4, Absolute Eosinophils 0.3, Absolute Basophils 0, PUBS MCHC 33.4 12/27/162119: Urine Color YEL, Urine Clarity CLEAR, Urine pH 7.0, Ur Specific [place] 1.010, Urine Protein NEG, Urine Ketones NEG, Urine Nitrite NEG, Urine Bilirubin NEG, Urine Urobilinogen 0.2, Ur Leukocyte Esterase NEG, Ur Microscopic SEDIMENT EXAMINED, Urine RBC RARE, Ur Epithelial Cells RARE, Urine Hemoglobin TRACE- INTACT, Urine Glucose NEG 12/27/162044: Anion Gap 9, Estimated GFR 46 L, BUN/Creatinine Ratio 19.2, Glucose 78, Calcium 9.6, Total Bilirubin 0.4, AST 22, ALT 38, Alkaline Phosphatase 60, Troponin I < 0.01, Total Protein 6.4, Albumin 4.3, Globulin 2.1, Albumin/Globulin Ratio 2.0, PT 10.1, INR 0.96, APTT 26, CBC w Diff NO MAN DIFF REQ, RBC 3.65 L, MCV 90.6, MCH 30.9, RDW 13.0, MPV 8.4, Gran % 46.2, Lymphocytes % 42.0, Monocytes % 6.8, Eosinophils % 4.2, Basophils % 0.8, Absolute Granulocytes 3.5, Absolute Lymphocytes 3.2, Absolute Monocytes 0.5, Absolute Eosinophils 0.3, Absolute Basophils 0.1, PUBS MCHC 34.1 Assessment/Plan Impression/Plan: Tachypneic febrile on 100 nrb sao2 94 Urine out put 400 cc since 6 am Labs noted Physical Exam General Appearance Alert, Oriented at time lethargic Skin left leg abrasion lateral side, right knee abrasions HEENT dry mucous membranes Cardiovascular tachy Lungs ronchi right side of chest Abdomen Soft, No Tenderness, mild distended Neurological Normal Speech, Strength at 5/5 X4 Ext, Sensation Intact, Cranial Nerves 3-12 NL Extremities No Edema, No Tenderness/Swelling Sinus tachycardia with PVCs. No acute ST-T wave changes. QTc 472 CXR Results large cavitary lesions or large pleural-based loculated hydropneumothoraces. Other Results CT CHEST complex consolidation and irregular aeration more so in the right base with air bronchograms and more irregular air collection suggesting possible parenchymal lung abscess in the medial aspect of the right lower lobe. There is associated complex fluid and air -fluid levels in loculated pockets of the right pleural surface likely secondary to empyema. IMPRESSION 51 yo M smoker, with h/o alcohol abuse, multiple DT's, pancreatitis, alcoholic hepatitis, anxiety/depression, s/p ASD repair, is brought in by son for evaluation of 2-3 week h/o fatigue, weakness, confusion, poor appetite, weight loss (13 lbs), dyspnea and cough productive of yellow/dark phlegm. Patient reports right sided chest discomfort with coughing, he denies choking or coughing on food. His last drink was on December 09, last detox at [facility] was 2006 , patient denies any recent detoxes or seizures. Son reports patient was away at [place] 3 weeks ago and since he returned, he has been unwell. C/o nausea, vomiting, and few episodes of diarrhea. Severe Sepsis, due to PNA, lung abcess with complex fluid collection prob a complicated lung abcess vs complicated empyema and hydropneumothorax REsp failure Sig etoh abuse hence immunosupp / HIV neg Prob anaerobic pna vs staph etc Delirium sig malnutrition Prob ETOH withdrawal REC Urgent CTS consult pt may need chest tube or may need an urgent SURG if not IR guided pig tail depending on the surg opinion IVF TLC cath INtubate if worse IV vanco and meropenam NPO Heparing sub cut and famotidine PRn lorazepam May need higher level of care with invasive work up need for surg etc WIll follow Pt is critically ill tts 45 mins Consult Acknowledgment - Thank you for your consult request. DICTATED BY: ZULMA HALE MD DATE/TIME DICTATED:12/28/16943 LAP REGULATOR:MATTHEW DATE/TIME TRANSCRIBED:12/28/16943 REPORT NUMBER:[id number] CONFIDENTIAL, DO NOT COPY WITHOUT APPROPRIATE AUTHORIZATION. <Electronically signed by ZULMA HALE MD> 12/28/16958 CC: ZULMA HALE MD Report Status: Signed Report #: [id number] Page[p pg]
--- NOTE | 2016-12-28 11:00 | NUR ---
SPEECH THERAPY: SWALLOW EVALUATION ORDERS RECEIVED, PT CHART REVIEWED. PER RN, PT CURRENT TACHYPNEIC, HYPOXIC, AND IN RESPIRATORY INSUFFICIENCY. SWALLOW EVAL. DEFERRED AT THIS TIME. D/W RN AND MD. HUYNH CONTINUE TO FOLLOW CLINICALLY INDICATED.
--- NOTE | 2016-12-28 11:53 | RADIOLOGY REPORT ---
EXAMINATION: XR PORTABLE CHEST CLINICAL INFORMATION: Fever and cough. Empyema. COMPARISON: Multiple priors, most recently 12/27/2016 TECHNIQUE: Portable frontal view of the chest was obtained. FINDINGS: Right internal jugular central venous catheter remains in place. Median sternotomy wires are noted. Cardiac leads overlie the chest. Low lung volumes. Thick-walled cystic structures are again noted along the periphery of the right hemithorax, consistent with known empyema. Layering fluid is seen at the lung base. There is a hazy opacity medial to the loculated collections, with increasing density at the base. There is a dense retrocardiac opacity. This appears to have increased from previous. No pneumothorax. Severe degenerative changes of the left shoulder. IMPRESSION: Thick-walled collections along the periphery of the right pleural space again noted, similar to previous. There is increasing layering opacity medial to the collections within the lung with increased retrocardiac opacity. This may represent examination of pleural effusion with atelectasis/pneumonia. A degree of edema is also possible.
[2016-12-28 12:00] VITALS: BP 130/72
--- NOTE | 2016-12-28 12:10 | Cons- Cardiology ---
General Information and HPI Consulting Request Date of Consult: 12/28/16 Requested By: CHIP CARLOS,CARISSA Reason for Consult: Troponin, sinus tachycardia History of Present Illness: The patient is a 51-year-old male with history of ASD repair as a child, alcohol abuse, and tobacco abuse who presented with productive cough, fevers, and weight loss. He is found to have evidence of sepsis secondary to pneumonia, with lung abscess. The patient is currently lethargic and is able to give only limited history. Earlier this morning he reported chest discomfort. He has been in sinus tachycardia. Allergies/Medications Allergies: Coded Allergies: NO KNOWN ALLERGIES (12/03/14) Home Med List: Chlordiazepoxide HCl 25 MG CAPSULE 1 CAP PO BID ANXIETY (Reported) Current Medications: Current Medications Sig/Mimi Start time Last Medication Dose Route Stop Time Status Admin Acetaminophen 0 .STK-MED ONE 12/28 0300 DC IV Acetaminophen 1,000 MG ONCE ONE 12/28 0245 DC N/A 1 UNIT IV 12/28 0259 Acetaminophen 0 .STK-MED ONE 12/28 0130 DC PO Acetaminophen 650 MG Q6P PRN 12/27 2345 AC 12/28 PO 0128 Ampicillin Sodium/ 3,000 MG Q6 12/28 0600 DC 12/28 Sulbactam Sodium IV 0627 Sodium Chloride 100 ML Ampicillin Sodium/ 0 .STK-MED ONE 12/27 2217 DC Sulbactam Sodium .ROUTE Ampicillin Sodium/ 3,000 MG ONCE ONE 12/27 2215 DC 12/27 Sulbactam Sodium IV 12/27 2244 2222 Sodium Chloride 100 ML Cyanocobalamin/ 1 BAG DAILY@2100 12/28 2100 AC Thiamine/Pyridoxine IV Dextrose/Water 1,000 ML Cyanocobalamin/ 1 BAG ONCE ONE 12/27 1930 DC 12/27 Thiamine/Pyridoxine IV 12/28 0329 2132 Dextrose/Water 1,000 ML Dextrose/Sodium 1,000 ML Q10H 12/28 0245 AC 12/28 Chloride IV 0245 Dextrose/Sodium 1,000 ML .[id number] 12/27 2345 DC 12/28 Chloride IV 0128 Famotidine 20 MG BID 12/28 1000 AC 12/28 IV 1142 Heparin Sodium 5,000 UNIT Q8 12/28 1400 AC (Porcine) SC Ketorolac 30 MG ONCE ONE 12/28 0315 DC 12/28 Tromethamine IV 12/28 0316 0305 Ketorolac 0 .STK-MED ONE 12/28 0310 DC Tromethamine .ROUTE Lorazepam 0 .STK-MED ONE 12/28 0130 DC .ROUTE Lorazepam 0 Q1P PRN 12/28 0015 AC 12/28 IV 0128 Lorazepam 0 .STK-MED ONE 12/27 2217 DC .ROUTE Lorazepam 2 MG ONE ONE 12/270 DC 12/27 IV 12/27 Lorazepam 0 .STK-MED ONE 12/28 2123 DC .ROUTE Lorazepam 2 MG ONE ONE 12/27 2114 DC 12/27 IV 12/27 Meropenem 1 GM IQ8 12/28 0945 AC IV Sodium Chloride 1,000 ML BOLUS ONE 12/27 1930 DC 12/27 IV 12/27 Sodium Chloride 1,000 ML BOLUS ONE 12/27 1930 DC 12/27 IV 12/27 Sodium Chloride 1,000 ML BOLUS ONE 12/27 1930 DC 12/27 IV 12/27 2028 223 Vancomycin HCl 1,000 MG Q12H 12/28 0600 AC 12/28 Sodium Chloride 250 ML IV 0741 Review of Systems Review of Systems: No rash. No tremor. No vomiting. All other systems were reviewed, and were noted to be negative. Past History Travel History Traveled to [place] past 21 day No Medical History Neurological: NONE EENT: NONE Cardiovascular: OPEN HEART SX A 13 Y/O Respiratory: NONE Gastrointestinal: NONE Hepatic: NONE Renal: NONE Musculoskeletal: fracture (right hip) Psychiatric: alcohol dependence, anxiety, depression, insomnia Endocrine: NONE Blood Disorders: NONE Cancer(s): NONE LIFE SCIENTISTS/Reproductive: NONE Surgical History Surgical History: OPEN HEART SX AT 13 Y/O Family History Relations & Conditions If Any: FATHER (stroke). MOTHER (HTN). Psychosocial History Where Do You Live? Home Who Do You Live With? family Services at Home: None Primary Language: Icelandic Smoking Status: Former Smoker ETOH Use: alcoholic Illicit Drug Use: denies illicit drug use Exam & Diagnostic Data Vital Signs and I&O Vital Signs Date Time Temp Pulse Resp B/P B/P Pulse O2 O2 Flow FiO2 Mean Ox Delivery Rate 12/28 1142 97.8 12/28 0800 97.8 110 46 94/66 12/28 0800 92 Non 100% ReBreather 12/28 0800 97.8 110 46 94/66 92 Non 100% ReBreather 12/28 0600 112 40 92/60 12/28 0555 89 Non 100% ReBreather 12/28 0400 92 Non 100% ReBreather 12/28 0355 92 Non 100% ReBreather 12/28 0319 103.2 134 28 116/72 95 Non 100% ReBreather 12/28 0230 103.4 150 12/28 0157 103.8 143 24 111/57 99 Non ReBreather 12/28 0128 103.2 12/28 0119 103.2 150 22 174/79 12/28 0107 103.2 150 20 174/79 94 Non 100% ReBreather 12/27 2358 130 22 108/64 99 Non 100% ReBreather 12/27 2222 98.1 133 24 123/67 98 Non 100% ReBreather 12/27 2121 98.1 154 24 156/82 87 Non 100% ReBreather 12/27 2103 87 Non 100% ReBreather 12/27 1809 98.4 132 36 97/61 79 Room Air Intake & Output 12/28 1600 12/28 0800 12/28 0000 12/27 1600 12/27 0800 12/27 0000 Intake Total 675 1000 Output Total 150 350 Balance 525 650 Intake, IV 675 1000 Output, Urine 150 350 Patient 145 lb 155 lb Weight Weight Bed scale Reported by Patient Measurement Method Physical Exam: Gen: The patient is in no acute distress HEENT: Normal nose, ears, and oropharynx. Pupils equal bilaterally. Conjunctiva normal. Neck: Supple with no JVD, no masses, and no thyromegaly Lungs: Right-sided rhonchi with increased respiratory effort Heart: Tachycardic , S1, S2, 1/6 systolic murmur. No peripheral edema, 2+ pulses in the lower extremities bilaterally Abdomen: Soft, nontender, no masses. No hepatomegaly. No splenomegaly Extremities: No clubbing or cyanosis. Normal muscle strength in the upper and lower extremities Skin: Normal skin turgor with no skin ulcers or lesions noted. Neuro: Cranial nerves intact. Sensation intact Psych: Alert and oriented 3 with appropriate affect Labs/Bakari Results: Laboratory Tests 12/28 12/28 12/28 0930 0930 0750 Chemistry Lactic Acid (0.7 - 2.1 mmol/L) 5.6 H Troponin I (<0.11 ng/ml) 0.14 *H Toxicology Urine Opiates Screen (>2000 NG/ML) < 100.00 Methadone Screen (>300 NG/ML) 69 Barbiturate Screen (>200 NG/ML) < 60 Ur Phencyclidine Scrn (>25 NG/ML) 6.90 Amphetamines Screen (>1000 NG/ML) < 100 U Benzodiazepines Scrn (>200 NG/ML) > 800 H Urine Cocaine Screen (>300 NG/ML) < 50 Urine Cannabis Screen (>50 NG/ML) < 5.00 Urines Urinalysis LIGHT H Urine Color (YEL,AMB,STR) YEL Urine Clarity (CLEAR) CLEAR Urine pH (5.0 - 8.0) 6.0 Ur Specific [place] (1.001 - 1.035) 1.010 Urine Protein (NEG,<30 MG/DL) 30 H Urine Ketones (NEG) NEG Urine Nitrite (NEG) NEG Urine Bilirubin (NEG) NEG Urine Urobilinogen (0.1 - 1.0 EU/dl) 1.0 Ur Leukocyte Esterase (NEG) NEG Ur Microscopic SEDIMENT EXAMINED Urine RBC (0 - 5 /HPF) 3-5 Urine WBC (0 - 2 /HPF) 1-3 H Ur Epithelial Cells (NONE,FEW) OCCAS Urine Bacteria (NEG/NONE) RARE H Urine Mucus (FEW,NONE) RARE Urine Hemoglobin (NEG) SMALL H Urine Glucose (N MG/DL) NEG 12/28 12/28 12/28 0430 0135 0135 Chemistry Sodium (137 - 145 mmol/L) 142 Potassium (3.5 - 5.1 mmol/L) 4.0 Chloride (98 - 107 mmol/L) 107 Carbon Dioxide (22 - 30 mmol/L) 19 L Anion Gap (5 - 16) 15 BUN (9 - 20 mg/dL) 25 H Creatinine (0.7 - 1.2 mg/dL) 1.0 Estimated GFR (>60 ml/min) > 60 BUN/Creatinine Ratio (7 - 25 %) 25.0 Lactic Acid (0.7 - 2.1 mmol/L) 6.1 H 7.5 H Troponin I (<0.11 ng/ml) 0.20 *H 0.10 Coagulation PT (9.4 - 12.5 SEC) 20.1 H INR (0.90 - 1.17) 1.93 H Hematology CBC w Diff MAN DIFF ORDERED WBC (4.8 - 10.8 /CUMM) 2.0 L RBC (4.70 - 6.10 /CUMM) 2.73 L Hgb (14.0 - 18.0 G/DL) 8.4 L Hct (42 - 52 %) 25.4 L MCV (80.0 - 94.0 FL) 93.1 MCH (27.0 - 31.0 PG) 30.8 RDW (11.5 - 14.5 %) 13.6 Plt Count (130 - 400 /CUMM) 317 MPV (7.4 - 10.4 FL) 9.6 Gran % (42.2 - 75.2 %) 77.3 H Lymphocytes % (20.5 - 51.1 %) 20.7 Monocytes % (1.7 - 9.3 %) 1.8 Eosinophils % (0 - 5 %) 0.2 Basophils % (0.0 - 2.0 %) 0 L Absolute Granulocytes (1.4 - 6.5 /CUMM) 1.6 Segmented Neutrophils (42.2 - 75.2 %) 29 L Band Neutrophils (0.0 - 5.0 %) 21 H Absolute Lymphocytes (1.2 - 3.4 /CUMM) 0.4 L Lymphocytes (20.5 - 51.1 %) 37 Monocytes (1.7 - 9.3 %) 11 H Absolute Monocytes (0.10 - 0.60 /CUMM) 0 L Absolute Eosinophils (0.0 - 0.7 /CUMM) 0 Absolute Basophils (0.0 - 0.2 /CUMM) 0 Metamyelocytes (0.0 - 1.0 %) 2 H Platelet Estimate (ADEQUATE) ADEQUATE Hypochromic-Microcytic 2+ Anisocytosis 1+ PUBS MCHC (33.0 - 37.0 G/DL) 33.1 Serology Hepatitis A IgM Ab (NONREACTIVE) NONREACTIVE Hep Bs Antigen (NONREACTIVE) NONREACTIVE Hep B Core IgM Ab Conf (NONREACTIVE) NONREACTIVE Hepatitis C Antibody (NONREACTIVE) NONREACTIVE HIV 1&2 Ab Western Blot (NONREACTIVE) NONREACTIVE 12/27 194 1848 Blood Gas pH (7.35 - 7.45 PH) 7.43 pCO2 (35 - 45 TORR) 34 L pO2 (80 - 100 TORR) 61 L HCO3 (21 - 28 MEQ/L) 22 ABG O2 Sat (Measured) (>96.0 %) 89.0 L Carboxyhemoglobin (1.5 - 5.0 %) 0.7 L O2 Concentration % 4.5L O2 Delivery Method NC Chemistry Sodium (137 - 145 mmol/L) 137 Potassium (3.5 - 5.1 mmol/L) 4.1 Chloride (98 - 107 mmol/L) 96 L Carbon Dioxide (22 - 30 mmol/L) 24 Anion Gap (5 - 16) 16 BUN (9 - 20 mg/dL) 30 H Creatinine (0.7 - 1.2 mg/dL) 1.2 Estimated GFR (>60 ml/min) > 60 BUN/Creatinine Ratio (7 - 25 %) 25.0 Glucose (65 - 99 mg/dL) 105 H Calcium (8.4 - 10.2 mg/dL) 8.5 Magnesium (1.6 - 2.3 mg/dL) 2.4 H Total Bilirubin (0.2 - 1.3 mg/dL) 0.8 AST (17 - 59 U/L) 76 H ALT (21 - 72 U/L) 70 Alkaline Phosphatase (< 127 U/L) 122 Ammonia (9 - 30 umol/L) 35 H Troponin I (<0.11 ng/ml) 0.01 Pma-B-Godicrnbjop Pept (<125 pg/mL) 1060 H Total Protein (6.3 - 8.2 g/dL) 6.6 Albumin (3.5 - 5.0 g/dL) 2.9 L Globulin (1.9 - 4.2 gm/dL) 3.7 Albumin/Globulin Ratio (1.1 - 2.2 %) 0.8 L TSH (0.270 - 4.200 uIU/mL) 1.200 Free T4 (0.64 - 1.79 ng/dL) 1.70 Thyroxine (T4) (4.5 - 10.9 ug/dL) 8.8 Miscellaneous Phlebotomy Draw Site RIGHT RADIAL Toxicology Serum Alcohol (<10 MG/DL) < 10.0 Acetone Level (NEGATIVE) NEGATIVE 12/28 1835 Chemistry Lactic Acid (0.7 - 2.1 mmol/L) 7.9 H Hematology CBC w Diff MAN DIFF ORDERED WBC (4.8 - 10.8 /CUMM) 8.9 RBC (4.70 - 6.10 /CUMM) 3.36 L Hgb (14.0 - 18.0 G/DL) 10.1 L Hct (42 - 52 %) 31.4 L MCV (80.0 - 94.0 FL) 93.3 MCH (27.0 - 31.0 PG) 30.1 RDW (11.5 - 14.5 %) 14.0 Plt Count (130 - 400 /CUMM) 432 H MPV (7.4 - 10.4 FL) 9.5 Gran % (42.2 - 75.2 %) 87.6 H Lymphocytes % (20.5 - 51.1 %) 10.2 L Monocytes % (1.7 - 9.3 %) 1.4 L Eosinophils % (0 - 5 %) 0.7 Basophils % (0.0 - 2.0 %) 0.1 Absolute Granulocytes (1.4 - 6.5 /CUMM) 7.8 H Segmented Neutrophils (42.2 - 75.2 %) 60 Band Neutrophils (0.0 - 5.0 %) 21 H Absolute Lymphocytes (1.2 - 3.4 /CUMM) 0.9 L Lymphocytes (20.5 - 51.1 %) 17 L Absolute Monocytes (0.10 - 0.60 /CUMM) 0.1 L Eosinophils (0 - 5.0 %) 2 Absolute Eosinophils (0.0 - 0.7 /CUMM) 0.1 Absolute Basophils (0.0 - 0.2 /CUMM) 0 Platelet Estimate (ADEQUATE) INCREASED Normocytic RBCs VERIFIED Hypochromic-Microcytic 1+ PUBS MCHC (33.0 - 37.0 G/DL) 32.2 L Diagnostic Data EKG Results EKG tracing is independently reviewed, and reveals sinus tachycardia at 125 bpm CXR Results Thick-walled collections along the periphery of the right pleural space again noted, similar to previous. There is increasing layering opacity medial to the collections within the lung with increased retrocardiac opacity. This may represent examination of pleural effusion with atelectasis/pneumonia. A degree of edema is also possible. Other Results CT chest: Very abnormal appearance to the chest. There is complex consolidation and irregular aeration more so in the right base with air bronchograms and more irregular air collection suggesting possible parenchymal lung abscess in the medial aspect of the right lower lobe. There is associated complex fluid and air-fluid levels in loculated pockets of the right pleural surface likely secondary to empyema in this setting. Clinical correlation would be needed. Assessment/Plan Assessment/Plan Assessment: * Sepsis secondary to pneumonia and lung abscess * Mild troponin elevation secondary to demand ischemia and sepsis * Sinus tachycardia secondary to sepsis Plan: * The patient is planned for transfer to [facility] * Echocardiogram pending * Symptoms appear to be secondary to sepsis, and there is no evidence at this time of a primary cardiac abnormality. Would hold off on starting any cardiac medications given hypotension * The patient may require intubation and pressor therapy for sepsis if condition deteriorates Consult Acknowledgment - Thank you for your consult request.
--- NOTE | 2016-12-28 12:21 | Discharge Summary ---
Visit Information Visit Dates Admission Date: 12/27/16 Discharge Date: 12/28/16 Hospital Course Course Attending Physician: CARISSA SAUNDERS MD Primary Care Physician: LINNETTE BAUM MD Consulting Request: Consulting Specialty: Critical Care Hospital Course: 51 year old man wiht past medical history of anxiety/depression, insomnia, EtOH abuse/dependence, current smoker seen for evaluation in the ED for comaplints of fatgiue, weakness, productive cough of yellow sputum, chills, anorexia, and weight. [facility] [place] [facility] and reportedly starting developed these symptoms upon return and has been reportedly bedbound during this time. Upon admission he complained of chest discomfort, shortness of breath, and palpitations. Review of system was otherwise negative except for multiple episodes of nonbloody diarrhea. He otherwise denies any sick contacts. His son reports that his father became nausetead with one episode of vomiting during breakfast. He has apparently unintentionally lost 13 pounds during this period. ED Course: -Vitals: Temp 98.1 - 98.4, HR 132-152, RR 24-36, BP 97-156/61-82, O2 79-87% on 100% via NRB -Significant Labs: WBC/Bands 8.9/21, Hgb/Hct 10.1/31.4, Plt 432, normal serum chemistries, lactic acid 7.9, AST/ALt 76/70, BNP 1060, TSH/Free T4 1.2/1.7, UTox positive only for benzo, UA negative, INR 1.93, ABG: pH 7.43, pCO2 34, pO2 61, HCO3 22, HIV/hepatitis panel negative -Interventions: Unasyn 3 g IV, Ativan 2 mg IV 2, banana bag -Studies: * Chest x-ray-There is a very usual appearance to the right chest. I'm uncertain if these represent large cavitary lesions or large pleural-based loculated hydropneumothoraces. Clinical correlation would be recommended. CT scan of the chest may be helpful for evaluating further if needed. No overt edema. Patient status post sternotomy but this is not changed in appearance from the 2006 study. Additional bony changes as described. * CT chest/abdomen/pelvis with IV contrast-IMPRESSION: Very abnormal appearance to the chest. There is complex consolidation and irregular aeration more so in the right base with air bronchograms and more irregular air collection suggesting possible parenchymal lung abscess in the medial aspect of the right lower lobe. There is associated complex fluid and air-fluid levels in loculated pockets of the right pleural surface likely secondary to empyema in this setting. Clinical correlation would be needed. * CT head without intravenous contrast-no acute cranial pathology * Post central line chest [id number]: Thick-walled collections along the periphery of the right pleural space again noted, similar to previous. There is increasing layering opacity medial to the collections within the lung with increased retrocardiac opacity. This may represent examination of pleural effusion with atelectasis/pneumonia. A degree of edema is also possible. * EKG-sinus tachycardia without ST segment changes and prolonged QT C Problem List: -Severe Sepsis secondary to pneumonia / lung effusion / abscess -Lactic Acidosis -History of EtOH Dependence -Elevated BNP Hospital Course: Physical examination was significant for middle-aged man in mild distress with dry mucous membranes, cardiopulmonary examination was remarkable for tachycardia and rhonchi, benign abdominal examination, nonfocal neurologic examination. Patient was begun on intravenous Unasyn/vancomycin and normal saline and admitted to the intensive care unit for further evaluation. Consults with interventional radiology, infectious disease, and cardiothoracic surgery were placed. Interventional radiology felt patient's imaging could represent a pleural-lung parenchymal fistula for which he should be evaluated by cardiothoracic surgery. Cardiothoracic surgery was unfortunately unavailable. A triple-lumen catheter was placed in the patient's right internal jugular vein and patient was started on intravenous meropenem and Unasyn was discontinued. Patient progressively became more somnolent and confused, he is constantly pulling at his nonrebreather supplemental oxygen. It was decided, and discussed with family, that patient should be transferred to [facility] for a higher level of care and cardiothoracic surgery evaluation for treatment of his severe sepsis and possible lung effusion/empyema. Patient is to be transferred via ambulance to [facility] under the care of Dr. Byrne. Allergies: Coded Allergies: NO KNOWN ALLERGIES (12/03/14) Significant Procedures: SERVICE DATE: 12/27/16 EXAM TYPE: RAD - XRY-PORTABLE CHEST XRAY IMPRESSION: There is a very usual appearance to the right chest. I'm uncertain if these represent large cavitary lesions or large pleural-based loculated hydropneumothoraces. Clinical correlation would be recommended. CT scan of the chest may be helpful for evaluating further if needed. No overt edema. Patient status post sternotomy but this is not changed in appearance from the 2006 study. Additional bony changes as described. SERVICE DATE: 12/27/16 EXAM TYPE: CAT - CT ABD & PELVIS W IV CONTRAST; CT CHEST W IV CONTRAST IMPRESSION: Very abnormal appearance to the chest. There is complex consolidation and irregular aeration more so in the right base with air bronchograms and more irregular air collection suggesting possible parenchymal lung abscess in the medial aspect of the right lower lobe. There is associated complex fluid and air-fluid levels in loculated pockets of the right pleural surface likely secondary to empyema in this setting. Clinical correlation would be needed. SERVICE DATE: 12/27/16 EXAM TYPE: CAT - CT HEAD WO IV CONTRAST IMPRESSION: No acute intracranial pathology. SERVICE DATE: 12/28/16 EXAM TYPE: RAD - XRY-PORTABLE CHEST XRAY IMPRESSION: Thick-walled collections along the periphery of the right pleural space again noted, similar to previous. There is increasing layering opacity medial to the collections within the lung with increased retrocardiac opacity. This may represent examination of pleural effusion with atelectasis/pneumonia. A degree of edema is also possible. Disposition Summary Disposition Principal Diagnosis: Severe sepsis secondary to lung abscess/empema/effusion Additional Diagnosis: Elevated lactic acid Discharge Disposition: other general hospital Discharge Instructions General Discharge Information Code Status: Full Code Patient's Diet: NPO Patient's Activity: Bedrest until surgical eval Follow-Up Instructions/Appts: Transfer to [facility] for further evaluation Medications at Discharge Discharge Medications: Continue taking these medications: Omeprazole (Omeprazole) 40 MG CAPSULE. 1 Capsule ORAL DAILY Comments: PT DID NOT RECIEVE. PT RECIECED PEPCID 12/28/16 AT 1142 Start taking the following new medications: Meropenem (Meropenem) 1 GRAM VIAL 1 Gram INTRAVEN IV EVERY 8 HOURS Qty = 10 No Refills Instructions: REASSESS NEED AT [facility] Comments: Last Taken:12/28/16 Time:1215PM Copies To: SARIKA CARLOS,LINNETTE; SAMANTHA CARLOS,RAJ Singh MD Review Statement Other Findings: as above will follow at [facility]
[2016-12-28] MEDS ORDERED: OMEPRAZOLE40 M1 PO (12:22)
[2016-12-28] MEDS ORDERED: MEROPENEM1 G1 IV (12:25)
[2016-12-28 12:40] VITALS: BP 94/66
--- NOTE | 2016-12-28 13:16 | Cons- Infect Disease ---
General Information and HPI Consulting Request Date of Consult: 12/28/16 Requested By: CHIP CARLOS,CARISSA Reason for Consult: Empyema/abx advice Source of Information: primary team Exam Limitations: unable to give history History of Present Illness: 51-year-old man with past medical history of anxiety/depression, insomnia, alcohol abuse/binge drinking and smoking (10 cig/day, quit 2 weeks ago) presented to ER with complaint of fatigue, generalized weakness, productive cough with yellow phlegm, chills, anorexia and recent weight loss (over 10 lbs in less then a month). According to son he went to [place] alone about 3 weeks ago for few days and since he has come back he is not feeling well. Patient reported on admission pleuritic chest pain with cough, SOB and palpitations. He denied profuse sweating, hemoptysis, nausea, vomiting, abdominal pain, urinary symptoms, LE's swelling. He reports recent diarrhea and stool was soft and nonbloody. Denies sick contacts around him. According to son the morning of the day of admission he vomited after eating his breakfast. Son is not sure whether he was using illicit drugs or not. Patient lives with his family, used to work in [employer] for 28 years, sexually active and monogamous with his . Family history of hypertension and stroke. No family history of cancer. Patient also has history of abusing his psych medications. Clinically deteriorating, spiked fever 103 F, currently hypoxemic on 100% NRB, tachycardic, tachypneic, unable to carry a conversation. Nodding "Yes" when asked if he had productive cough. Allergies/Medications Allergies: Coded Allergies: NO KNOWN ALLERGIES (12/03/14) Home Med List: Meropenem 1 GRAM VIAL 1 GM IV IQ8 SEPSIS REASSESS NEED AT [facility] Omeprazole 40 MG CAPSULE.DR Zhao CAP PO DAILY GERD (Reported) Current Medications: Current Medications Sig/Mimi Start time Last Medication Dose Route Stop Time Status Admin Acetaminophen 0 .STK-MED ONE 12/28 0300 DC IV Acetaminophen 1,000 MG ONCE ONE 12/28 0245 DC N/A 1 UNIT IV 12/28 0259 Acetaminophen 0 .STK-MED ONE 12/28 0130 DC PO Acetaminophen 650 MG Q6P PRN 12/27 2345 AC 12/28 PO 0128 Ampicillin Sodium/ 3,000 MG Q6 12/28 0600 DC 12/28 Sulbactam Sodium IV 0627 Sodium Chloride 100 ML Ampicillin Sodium/ 0 .STK-MED ONE 12/27 2216 DC Sulbactam Sodium .ROUTE Ampicillin Sodium/ 3,000 MG ONCE ONE 12/27 2214 DC 12/27 Sulbactam Sodium IV 12/27 2244 2222 Sodium Chloride 100 ML Cyanocobalamin/ 1 BAG DAILY@2100 12/28 2100 AC Thiamine/Pyridoxine IV Dextrose/Water 1,000 ML Cyanocobalamin/ 1 BAG ONCE ONE 12/27 1930 DC 12/27 Thiamine/Pyridoxine IV 12/28 0329 2132 Dextrose/Water 1,000 ML Dextrose/Sodium 1,000 ML Q10H 12/28 0245 AC 12/28 Chloride IV 0245 Dextrose/Sodium 1,000 ML .[id number] 12/27 2345 DC 12/28 Chloride IV 0128 Famotidine 20 MG BID 12/28 1000 AC 12/28 IV 1142 Heparin Sodium 5,000 UNIT Q8 12/28 1400 AC (Porcine) SC Ketorolac 30 MG ONCE ONE 12/28 0315 DC 12/28 Tromethamine IV 12/28 0316 0305 Ketorolac 0 .STK-MED ONE 12/28 0310 DC Tromethamine .ROUTE Lorazepam 0 .STK-MED ONE 12/28 0130 DC .ROUTE Lorazepam 0 Q1P PRN 12/28 0015 AC 12/28 IV 0128 Lorazepam 0 .STK-MED ONE 12/27 2216 DC .ROUTE Lorazepam 2 MG ONE ONE 12/27 2199 DC 12/27 IV 12/27 2200 222 Lorazepam 0 .STK-MED ONE 12/274 DC .ROUTE Lorazepam 2 MG ONE ONE 12/27 2114 DC 12/27 IV 12/27 Meropenem 1 GM IQ8 12/28 0945 AC 12/28 IV 1209 Sodium Chloride 1,000 ML BOLUS ONE 12/27 193 DC 12/27 IV 12/27 2028 193 Sodium Chloride 1,000 ML BOLUS ONE 12/27 1930 DC 12/27 IV 12/27 2028 203 Sodium Chloride 1,000 ML BOLUS ONE 12/27 1930 DC 12/27 IV 12/27 2028 223 Vancomycin HCl 1,000 MG Q12H 12/28 0600 AC 12/28 Sodium Chloride 250 ML IV 0741 Past History Travel History Traveled to [place] past 21 day No Medical History Neurological: NONE EENT: NONE Cardiovascular: OPEN HEART SX A 13 Y/O Respiratory: NONE Gastrointestinal: NONE Hepatic: NONE Renal: NONE Musculoskeletal: fracture (right hip) Psychiatric: alcohol dependence, anxiety, depression, insomnia Endocrine: NONE Blood Disorders: NONE 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 MOTHER (HTN). Psychosocial History Where Do You Live? Home Who Do You Live With? family Services at Home: None Primary Language: Niuean Smoking Status: Former Smoker ETOH Use: alcoholic Illicit Drug Use: denies illicit drug use Review of Systems Comments 12 points reviewed as noted, otherwise negative. Exam & Diagnostic Data Last 24 Hrs of Vital Signs/I&O Vital Signs Date Time Temp Pulse Resp B/P B/P Pulse O2 O2 Flow FiO2 Mean Ox Delivery Rate 12/28 1240 97.8 130 46 94/66 12/28 1200 94 Non 100% ReBreather 12/28 1142 97.8 12/28 0800 97.8 110 46 94/66 12/28 0800 92 Non 100% ReBreather 12/28 0800 97.8 110 46 94/66 92 Non 100% ReBreather 12/28 0600 112 40 92/60 12/28 0555 89 Non 100% ReBreather 12/28 0400 92 Non 100% ReBreather 12/28 0355 92 Non 100% ReBreather 12/28 0319 103.2 134 28 116/72 95 Non 100% ReBreather 12/28 0230 103.4 150 12/28 0157 103.8 143 24 111/57 99 Non ReBreather 12/28 0128 103.2 12/28 0119 103.2 150 22 174/79 12/28 0107 103.2 150 20 174/79 94 Non 100% ReBreather 12/27 2358 130 22 108/64 99 Non 100% ReBreather 12/27 2222 98.1 133 24 123/67 98 Non 100% ReBreather 12/271 98.1 154 24 156/82 87 Non 100% ReBreather 12/27 2103 87 Non 100% ReBreather 12/27 1809 98.4 132 36 97/61 79 Room Air Intake & Output 12/28 1600 12/28 0800 12/28 0000 Intake Total 675 1000 Output Total 150 350 Balance 525 650 Intake, IV 675 1000 Output, Urine 150 350 Patient 145 lb 155 lb Weight Weight Bed scale Reported by Patient Measurement Method Physical Exam Other Physical Findings: Gen: The patient is in acute respiratory distress HEENT: Normal nose, ears, and oropharynx. Pupils equal bilaterally. Neck: Supple with no JVD, no masses, and no thyromegaly Lungs: Right-sided rhonchi with increased respiratory effort Heart: Tachycardic , S1, S2, 1/6 systolic murmur. No peripheral edema, 2+ pulses in the lower extremities bilaterally Abdomen: Soft, nontender. Extremities: No pedal edema. No cyanosis. Skin: Normal skin turgor with no skin ulcers or lesions noted. Neuro: Awake and alert. Last 24 Hours of Lab Results: Laboratory Tests 12/28 12/28 12/28 1215 0930 0930 Blood Gas pH (7.35 - 7.45 PH) 7.30 *L pCO2 (35 - 45 TORR) 36 pO2 (80 - 100 TORR) 73 L HCO3 (21 - 28 MEQ/L) 17 L ABG O2 Sat (Measured) (>96.0 %) 92.0 L Carboxyhemoglobin (1.5 - 5.0 %) 0.2 L O2 Concentration % 100% O2 Delivery Method REBMASK Chemistry Lactic Acid (0.7 - 2.1 mmol/L) 5.6 H Troponin I (<0.11 ng/ml) 0.14 *H Miscellaneous Phlebotomy Draw Site RIGHT RADIAL 12/28 12/28 0750 8200 Chemistry Sodium (137 - 145 mmol/L) 142 Potassium (3.5 - 5.1 mmol/L) 4.0 Chloride (98 - 107 mmol/L) 107 Carbon Dioxide (22 - 30 mmol/L) 19 L Anion Gap (5 - 16) 15 BUN (9 - 20 mg/dL) 25 H Creatinine (0.7 - 1.2 mg/dL) 1.0 Estimated GFR (>60 ml/min) > 60 BUN/Creatinine Ratio (7 - 25 %) 25.0 Lactic Acid (0.7 - 2.1 mmol/L) 6.1 H Troponin I (<0.11 ng/ml) 0.20 *H Coagulation PT (9.4 - 12.5 SEC) 20.1 H INR (0.90 - 1.17) 1.93 H Hematology CBC w Diff MAN DIFF ORDERED WBC (4.8 - 10.8 /CUMM) 2.0 L RBC (4.70 - 6.10 /CUMM) 2.73 L Hgb (14.0 - 18.0 G/DL) 8.4 L Hct (42 - 52 %) 25.4 L MCV (80.0 - 94.0 FL) 93.1 MCH (27.0 - 31.0 PG) 30.8 RDW (11.5 - 14.5 %) 13.6 Plt Count (130 - 400 /CUMM) 317 MPV (7.4 - 10.4 FL) 9.6 Gran % (42.2 - 75.2 %) 77.3 H Lymphocytes % (20.5 - 51.1 %) 20.7 Monocytes % (1.7 - 9.3 %) 1.8 Eosinophils % (0 - 5 %) 0.2 Basophils % (0.0 - 2.0 %) 0 L Absolute Granulocytes (1.4 - 6.5 /CUMM) 1.6 Segmented Neutrophils (42.2 - 75.2 %) 29 L Band Neutrophils (0.0 - 5.0 %) 21 H Absolute Lymphocytes (1.2 - 3.4 /CUMM) 0.4 L Lymphocytes (20.5 - 51.1 %) 37 Monocytes (1.7 - 9.3 %) 11 H Absolute Monocytes (0.10 - 0.60 /CUMM) 0 L Absolute Eosinophils (0.0 - 0.7 /CUMM) 0 Absolute Basophils (0.0 - 0.2 /CUMM) 0 Metamyelocytes (0.0 - 1.0 %) 2 H Platelet Estimate (ADEQUATE) ADEQUATE Hypochromic-Microcytic 2+ Anisocytosis 1+ PUBS MCHC (33.0 - 37.0 G/DL) 33.1 Serology Hepatitis A IgM Ab (NONREACTIVE) NONREACTIVE Hep Bs Antigen (NONREACTIVE) NONREACTIVE Hep B Core IgM Ab Conf (NONREACTIVE) NONREACTIVE Hepatitis C Antibody (NONREACTIVE) NONREACTIVE HIV 1&2 Ab Western Blot (NONREACTIVE) NONREACTIVE Toxicology Urine Opiates Screen (>2000 NG/ML) < 100.00 Methadone Screen (>300 NG/ML) 69 Barbiturate Screen (>200 NG/ML) < 60 Ur Phencyclidine Scrn (>25 NG/ML) 6.90 Amphetamines Screen (>1000 NG/ML) < 100 U Benzodiazepines Scrn (>200 NG/ML) > 800 H Urine Cocaine Screen (>300 NG/ML) < 50 Urine Cannabis Screen (>50 NG/ML) < 5.00 Urines Urinalysis LIGHT H Urine Color (YEL,AMB,STR) YEL Urine Clarity (CLEAR) CLEAR Urine pH (5.0 - 8.0) 6.0 Ur Specific [place] (1.001 - 1.035) 1.010 Urine Protein (NEG,<30 MG/DL) 30 H Urine Ketones (NEG) NEG Urine Nitrite (NEG) NEG Urine Bilirubin (NEG) NEG Urine Urobilinogen (0.1 - 1.0 EU/dl) 1.0 Ur Leukocyte Esterase (NEG) NEG Ur Microscopic SEDIMENT EXAMINED Urine RBC (0 - 5 /HPF) 3-5 Urine WBC (0 - 2 /HPF) 1-3 H Ur Epithelial Cells (NONE,FEW) OCCAS Urine Bacteria (NEG/NONE) RARE H Urine Mucus (FEW,NONE) RARE Urine Hemoglobin (NEG) SMALL H Urine Glucose (N MG/DL) NEG 12/28 12/28 12/27 12/27 12/27 0135 0135 1949 194 1845 Blood Gas pH (7.35 - 7.45 PH) 7.43 pCO2 (35 - 45 TORR) 34 L pO2 (80 - 100 TORR) 61 L HCO3 (21 - 28 MEQ/L) 22 ABG O2 Sat (Measured) (>96.0 %) 89.0 L Carboxyhemoglobin (1.5 - 5.0 %) 0.7 L O2 Concentration % 4.5L O2 Delivery Method NC Chemistry Sodium (137 - 145 mmol/L) 137 Potassium (3.5 - 5.1 mmol/L) 4.1 Chloride (98 - 107 mmol/L) 96 L Carbon Dioxide (22 - 30 mmol/L) 24 Anion Gap (5 - 16) 16 BUN (9 - 20 mg/dL) 30 H Creatinine (0.7 - 1.2 mg/dL) 1.2 Estimated GFR (>60 ml/min) > 60 BUN/Creatinine Ratio (7 - 25 %) 25.0 Glucose (65 - 99 mg/dL) 105 H Lactic Acid (0.7 - 2.1 mmol/L) 7.5 H Calcium (8.4 - 10.2 mg/dL) 8.5 Magnesium (1.6 - 2.3 mg/dL) 2.4 H Total Bilirubin (0.2 - 1.3 mg/dL) 0.8 AST (17 - 59 U/L) 76 H ALT (21 - 72 U/L) 70 Alkaline Phosphatase (< 127 U/L) 122 Ammonia (9 - 30 umol/L) 35 H Troponin I (<0.11 ng/ml) 0.10 0.01 Qkn-P-Yljdcharxqa Pept (<125 pg/mL) 1060 H Total Protein (6.3 - 8.2 g/dL) 6.6 Albumin (3.5 - 5.0 g/dL) 2.9 L Globulin (1.9 - 4.2 gm/dL) 3.7 Albumin/Globulin Ratio (1.1 - 2.2 %) 0.8 L TSH (0.270 - 4.200 uIU/mL) 1.200 Free T4 (0.64 - 1.79 ng/dL) 1.70 Thyroxine (T4) (4.5 - 10.9 ug/dL) 8.8 Miscellaneous Phlebotomy Draw Site RIGHT RADIAL Toxicology Serum Alcohol (<10 MG/DL) < 10.0 Acetone Level (NEGATIVE) NEGATIVE 12/27 1836 Chemistry Lactic Acid (0.7 - 2.1 mmol/L) 7.9 H Hematology CBC w Diff MAN DIFF ORDERED WBC (4.8 - 10.8 /CUMM) 8.9 RBC (4.70 - 6.10 /CUMM) 3.36 L Hgb (14.0 - 18.0 G/DL) 10.1 L Hct (42 - 52 %) 31.4 L MCV (80.0 - 94.0 FL) 93.3 MCH (27.0 - 31.0 PG) 30.1 RDW (11.5 - 14.5 %) 14.0 Plt Count (130 - 400 /CUMM) 432 H MPV (7.4 - 10.4 FL) 9.5 Gran % (42.2 - 75.2 %) 87.6 H Lymphocytes % (20.5 - 51.1 %) 10.2 L Monocytes % (1.7 - 9.3 %) 1.4 L Eosinophils % (0 - 5 %) 0.7 Basophils % (0.0 - 2.0 %) 0.1 Absolute Granulocytes (1.4 - 6.5 /CUMM) 7.8 H Segmented Neutrophils (42.2 - 75.2 %) 60 Band Neutrophils (0.0 - 5.0 %) 21 H Absolute Lymphocytes (1.2 - 3.4 /CUMM) 0.9 L Lymphocytes (20.5 - 51.1 %) 17 L Absolute Monocytes (0.10 - 0.60 /CUMM) 0.1 L Eosinophils (0 - 5.0 %) 2 Absolute Eosinophils (0.0 - 0.7 /CUMM) 0.1 Absolute Basophils (0.0 - 0.2 /CUMM) 0 Platelet Estimate (ADEQUATE) INCREASED Normocytic RBCs VERIFIED Hypochromic-Microcytic 1+ PUBS MCHC (33.0 - 37.0 G/DL) 32.2 L Last 24 Hours of Bakari Results: atient : MAXIME JOYNER Acct: [id number] DR: [facility]IP CARLOS[facility] Birthdate: [birth year] Age/Sex: 51/M Unit: [id number] Loc: [facility] 110- 01 Status : ADM IN SPEC #: [id number] JENNIFER: 12/27/16 STATUS: RES RECD: 12/27/[address]: ANTONIO CARLOS,MARY Barnes SOURCE: BLOOD ENTR: 12/27/16[address] [facility] DR: LINNETTE BAUM MD SPDESC: 1ST/VENOUS ORDERED: BLOOD CULTURE Procedure Result > BLOOD CULTURE REPORT Preliminary 12/28/16122 No growth after 1 day incubation. Specimen is examined continuously for 5 days before final report unless culture becomes positive. Diagnostic Data Recent Imaging Findings: ERVICE DATE: 12/28/16 EXAM TYPE: RAD - XRY-PORTABLE CHEST XRAY EXAMINATION: XR PORTABLE CHEST CLINICAL INFORMATION: Fever and cough. Empyema. COMPARISON: Multiple priors, most recently 12/27/2016 TECHNIQUE: Portable frontal view of the chest was obtained. FINDINGS: Right internal jugular central venous catheter remains in place. Median sternotomy wires are noted. Cardiac leads overlie the chest. Low lung volumes. Thick-walled cystic structures are again noted along the periphery of the right hemithorax, consistent with known empyema. Layering fluid is seen at the lung base. There is a hazy opacity medial to the loculated collections, with increasing density at the base. There is a dense retrocardiac opacity. This appears to have increased from previous. No pneumothorax. Severe degenerative changes of the left shoulder. IMPRESSION: Thick-walled collections along the periphery of the right pleural space again noted, similar to previous. There is increasing layering opacity medial to the collections within the lung with increased retrocardiac opacity. This may represent examination of pleural effusion with atelectasis/pneumonia. A degree of edema is also possible. DICTATED BY: KATIE SILVA MD DATE/TIME DICTATED:12/28/161147 WOOL SPOTTER:BLANE DATE/TIME TRANSCRIBED:12/28/161147 XAMINATION: CT CHEST, ABDOMEN AND PELVIS WITH CONTRAST. CLINICAL INFORMATION: SEPSIS: HYPOXIA, ABN CXR. COMPARISON: Chest x-ray earlier today. TECHNIQUE: Multidetector volumetric imaging was performed from the thoracic inlet through the pubic symphysis following administration of 95 ml of Optiray 320. Sagittal and coronal reformatted images were obtained on the technologist workstation. DLP: 384 mGy-cm FINDINGS: CHEST: LUNG: This is a markedly abnormal study. Focal consolidation in the right base is seen with air bronchograms and more complex irregular air densities in the medial aspect of the right lower lobe concerning for more focal abscess as these irregular air collections do not definitively following the expected course of the bronchi. There is more patchy airspace disease in the contralateral left base. Likely loculated hydropneumothorax secondary to empyema described below MEDIASTINUM: The mediastinum is unremarkable. The central vascular structures are unremarkable. No hilar or mediastinal lymphadenopathy. PERICARDIUM/PLEURA: Complex loculated air-filled thick-walled collections in the right pleural surface with air-fluid levels suggesting loculated complex collection is likely secondary to empyema in this setting. These do not appear to represent thick-walled parenchymal lung cavities but more likely loculated air-fluid components within the pleural space adjacent to this very abnormal lung parenchyma. CHEST WALL/AXILLA: Unremarkable. ABDOMEN/PELVIS: PERITONEAL SPACE:No significant free air or free fluid identified. LIVER, GALLBLADDER, BILIARY TREE: The liver is normal in size, shape, and attenuation. No focal hepatic lesion or biliary ductal dilatation is present. The gallbladder is unremarkable with no evidence of radiopaque gallstones, gallbladder wall thickening, or obvious pericholecystic inflammatory changes. PANCREAS: Unremarkable. SPLEEN: Unremarkable. ADRENAL GLANDS: Unremarkable. KIDNEYS AND URETERS: The kidneys are normal in size, shape, and attenuation. No hydronephrosis, hydroureter, or calculi seen. No perinephric stranding. BLADDER: Decompressed with Garcia catheter GASTROINTESTINAL TRACT: Scattered colonic diverticulosis but no evidence for diverticulitis. Normal-appearing appendix in the right lower quadrant. Colon is relatively decompressed. Small bowel unremarkable ABDOMINAL WALL: No significant hernia is appreciated. LYMPHOVASCULAR STRUCTURES: Vascular calcification in the aorta iliac system. PELVIC VISCERA: Unremarkable. OSSEUS STRUCTURES: Right hip hardware. No acute bony abnormality. Patient is status post sternotomy. IMPRESSION: Very abnormal appearance to the chest. There is complex consolidation and irregular aeration more so in the right base with air bronchograms and more irregular air collection suggesting possible parenchymal lung abscess in the medial aspect of the right lower lobe. There is associated complex fluid and air-fluid levels in loculated pockets of the right pleural surface likely secondary to empyema in this setting. Clinical correlation would be needed. DICTATED BY: JASMIN WILLSON MD DATE/TIME DICTATED:12/27/162155 WOOL SPOTTER:BLANE DATE/TIME TRANSCRIBED:12/27/162155 CONFIDENTIAL, DO NOT COPY WITHOUT APPROPRIATE AUTHORIZATION. <Electronically signed in Other Vendor System> SIGNED BY: JASMIN WILLSON MD [id number] Assessment/Plan Assessment/Plan Impression: 51-year-old man with past medical history of anxiety/depression, insomnia, alcohol abuse/binge drinking and smoking admitted 12/27 with sepsis; CT chest revealing complex consolidation and irregular aeration more so in the right base with air bronchograms and more irregular air collection suggesting possible parenchymal lung abscess in the medial aspect of the right lower lobe and empyema (planned lung decortication). Suggestion: 1. In the setting of fever and neutropenia broad abx coverage w/ iv Meropenem 1 gm q 8 h and iv vancomycin 15 mg/kg q 12 h; goal trough 15-20. F/u cx results. if intubated obtain sputum cx. Pneumococcocal/legionella ur ag. 2. Trend CBC, BMP, lactic acid level, LDH, ABG's. 3. F/u pulm recom. Consult Acknowledgment - Thank you for your consult request.
--- NOTE | 2016-12-28 21:11 | ECHOCARDIOGRAM REPORT ---
MAXIME JOYNER Age: 51 : 1965 Gender: M Exam Date: 12/28/2016 08:55 Exam Location: [facility] Ht (in): 71 Wt (lb): 155 BSA: 1.87 BP: 116 / 72 Ordering Physician: ROSY KATE MD Referring Physician: ROSY KATE MD Technologist: Efra Oseguera [facility] Room Number: 110 Indications: LIGHTHEADEDNESS Rhythm: Sinus Technical Quality: Good FINDINGS Left Ventricle Normal size left ventricle. Normal left ventricular wall thickness. Mildly decreasd left ventricular systolic function. Left ventricular ejection fraction is estimated at 40-45 %. Global hypokinesis. Right Ventricle Mild right ventricular dilatation. Reduced right ventricular global systolic function. Right Atrium Normal right atrial size. Left Atrium Normal left atrial size. Mitral Valve Mitral valve thickened. Mild mitral regurgitation. Aortic Valve Diffuse thickening (sclerosis) of the aortic valve cusps without reduced excursion. Trace aortic regurgitation. Tricuspid Valve Tricuspid valve not well visualized, grossly normal. Mild tricuspid regurgitation. No evidence of pulmonary hypertension. Pulmonic Valve Pulmonic valve not well visualized, grossly normal. Trace pulmonic regurgitation. Pericardium No pericardial effusion. Great Vessels Normal size aortic root. CONCLUSIONS Mildly decreasd left ventricular systolic function. Left ventricular ejection fraction is estimated at 40-45 %. Global hypokinesis. Mild right ventricular dilatation. Mild mitral regurgitation. Trace aortic regurgitation. Mild tricuspid regurgitation. Reduced right ventricular global systolic function. Nando Evans M.D. (Electronically Signed) Final Date: 28 December 2016 21:10 MEASUREMENTS (Male / Female) Normal Values 2D ECHO LV Diastolic Diameter PLAX 4.8 cm 4.2 - 5.9 / 3.9 - 5.3 cm LV Systolic Diameter PLAX 3.9 cm 2.1 - 4.0 cm LV Fractional Shortening PLAX 18.8 % 25 - 46 % LV Ejection Fraction 2D Teich 38.7 % IVS Diastolic Thickness 0.8 cm LVPW Diastolic Thickness 0.8 cm LV Relative Wall Thickness 0.3 RV Internal Dim ED PLAX 4.0 cm 1.9 - 3.8 cm LVOT Diameter 2.0 cm Aortic Root Diameter 3.0 cm LA Systolic Diameter LX 3.9 cm 3.0 - 4.0 / 2.7 - 3.8 cm LA Volume 43.0 cm 18 - 58 / 22 - 52 cm Ascending Aorta Diameter 2.9 cm DOPPLER AV Peak Velocity 89.9 cm/s AV Peak Gradient 3.2 mmHg AV Mean Velocity 59.0 cm/s AV Mean Gradient 2.0 mmHg AV Velocity Time Integral 13.0 cm LVOT Peak Velocity 51.1 cm/s LVOT Peak Gradient 1.0 mmHg LVOT Mean Velocity 34.1 cm/s LVOT Mean Gradient 1.0 mmHg LVOT Velocity Time Integral 7.9 cm LVOT Stroke Volume 24.8 cm AV Area Cont Eq vti 1.9 cm AV Area Cont Eq pk 1.8 cm MV Peak Velocity 85.9 cm/s MV Peak Gradient 3.0 mmHg MV Mean Velocity 47.4 cm/s MV Mean Gradient 1.0 mmHg Mitral E Point Velocity 78.0 cm/s MV PHT Velocity 90.5 cm/s MV Deceleration [place] 544.0 cm/s MV Pressure Half Time 49.9 ms MV Area PHT 4.4 cm MV Deceleration Time 141.0 ms MR Peak Velocity 527.5 cm/s MR Peak Gradient 111.3 mmHg TR Peak Velocity 274.0 cm/s TR Peak Gradient 30.0 mmHg Right Atrial Pressure 5.0 mmHg Pulmonary Artery Systolic Pressu 35.0 mmHg Right Ventricular Systolic Press 35.0 mmHg PV Peak Velocity 70.3 cm/s PV Peak Gradient 2.0 mmHg PV Mean Velocity 46.2 cm/s PV Mean Gradient 1.0 mmHg PV Velocity Time Integral 11.1 cm LV E' Lateral Velocity 11.4 cm/s Mitral E to LV E' Lateral Ratio 6.8 LV E' Septal Velocity 11.7 cm/s Mitral E to LV E' Septal Ratio 6.7
== END 2016-12-28 13:16 | disposition short-term general hospital (02) | DRG 871 ==
LOC: ERH 18:01 → CRI 22:15 → ERHI 22:15 → CANRESERV 12-28 02:31 → ENRESERV 12-28 02:31 → CRI 12-28 03:58
PROVIDERS: Emergency Medicine; Internal Medicine; ADMIT Student in an Organized Health Care Education/Training Program
DX: A41.9 Sepsis, unspecified organism (principal); J96.01 Acute respiratory failure with hypoxia; J85.1 Abscess of lung with pneumonia; E87.2 Acidosis; F10.231 Alcohol dependence with withdrawal delirium; J15.8 Pneumonia due to other specified bacteria; E46 Unspecified protein-calorie malnutrition; I24.8 Other forms of acute ischemic heart disease; R65.20 Severe sepsis without septic shock; Z68.24 Body mass index [BMI] 24.0-24.9, adult; Y90.0 Blood alcohol level of less than 20 mg/100 ml; F41.8 Other specified anxiety disorders; G47.00 Insomnia, unspecified; Z87.891 Personal history of nicotine dependence; E78.5 Hyperlipidemia, unspecified; G89.29 Other chronic pain; Z87.11 Personal history of peptic ulcer disease
CPT/HCPCS: ERO; 36415; 74177; 80307; 81001; 82436; 87040; 87045; 87070; 87086; 87147; 87389; 93005; 93010; 93306; 96361; 96374; 96375; 99291; G0480; J0131; J1644; J1885; J2185; J3370; J7040; J7042; J7060

== ENCOUNTER 2017-08-07 14:23 | Emergency (ER) | payer OTHER ==
[~2017-08-07] VITALS: Ht 177.8 cm; Wt 64.4 kg
[~2017-08-07 14:23] MED LIST changes: +CHLORDIAZEPOXID25 M3 PO; +MEROPENEM1 G1 IV; +OMEPRAZOLE40 M1 PO
[2017-08-07 14:47] LABS: ABSOLUTE BASOPHIL COUNT 0 /CUMM (0.0-0.2); ABSOLUTE EOSINOPHIL COUNT 0.2 /CUMM (0.0-0.7); ABSOLUTE GRANULOCYTE CT 6.4 /CUMM (1.4-6.5); ABSOLUTE LYMPH COUNT 1.4 /CUMM (1.2-3.4); ABSOLUTE MONOCYTE COUNT 0.2 /CUMM (0.10-0.60); BASOPHIL % 0.5 % (0.0-2.0); EOSINOPHIL % 2.1 % (0-5); GRANULOCYTE % 77.9 % (42.2-75.2); MEAN CORPUSCULAR HGB 32.1 PG (27.0-31.0); MEAN CORPUSCULAR HGB CONC 34.7 G/DL (33.0-37.0); MEAN CORPUSCULAR VOLUME 92.6 FL (80.0-94.0); MEAN PLATELET VOLUME 8.2 FL (7.4-10.4); PLATELET COUNT 214 /CUMM (130-400); RBC DISTRIBUTION WIDTH 12.6 % (11.5-14.5); RED BLOOD CELL CT 4.65 /CUMM (4.70-6.10); WHITE BLOOD CELL COUNT 8.2 /CUMM (4.8-10.8)
[2017-08-07] MEDS ORDERED: XARELTO20 M2 PO (15:14)
[2017-08-07] MEDS ORDERED: ESCITALOPRAM OX10 MG PO (15:15)
[2017-08-07] MEDS ORDERED: CHLORDIAZEPOXID25 M3 PO (15:15)
[2017-08-07 16:23] VITALS: BP 110/59
--- NOTE | 2017-08-07 16:52 | ED PSYCHIATRIC COMPLAINT ---
History of Present Illness General Chief Complaint: Psychiatric Related Complaint Stated Complaint: PSY EVAL LOSS OF APPETITE/SLEEP Source: patient Exam Limitations: no limitations Vital Signs & Intake/Output Vital Signs & Intake/Output Vital Signs Date Time Temp Pulse Resp B/P B/P Pulse O2 O2 Flow FiO2 Mean Ox Delivery Rate 08/07 1623 97.9 75 18 110/59 98 Room Air 08/07 1429 97.4 94 18 131/86 99 Room Air Allergies Coded Allergies: NO KNOWN ALLERGIES (12/03/14) Reconcile Medications Chlordiazepoxide HCl 25 MG CAPSULE 1 CAP PO BID PRN UNKNOWN (Reported) Escitalopram Oxalate 10 MG TABLET 1 TAB PO DAILY MENTAL HEALTH (Reported) Rivaroxaban (Xarelto) 20 MG TABLET 1 TAB PO DAILY BLOOD THINNER (Reported) with food Triage Note: PT TO ED FOR WORSENING DEPRESSION X SEVERAL MONTHS, DENIES SI/HI. Triage Nurses Notes Reviewed? yes HPI: Patient presents for evaluation of poor appetite and poor sleep and has occurred more or less constantly over the past 2 months but waxing and waning in intensity. Patient feels is likely due to his history of depression. He states he has been compliant with Lexapro for his depression. He is prescribed this by his primary care physician. He denies any drug or alcohol use. Symptoms are described as moderate to severe in intensity and nothing seems to make him feel better. Past History Travel History Traveled to [place] past 21 day No Medical History Any Pertinent Medical History? 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 MOTHER (HTN). Hx Contributory? No Review of Systems Review of Systems Constitutional: Reports: no symptoms. EENTM: Reports: no symptoms. Respiratory: Reports: no symptoms. Cardiovascular: Reports: no symptoms. GI: Reports: no symptoms. Genitourinary: Reports: no symptoms. Musculoskeletal: Reports: no symptoms. Skin: Reports: no symptoms. Neurological/Psychological: Reports: see HPI. Hematologic/Endocrine: Reports: no symptoms. Immunologic/Allergic: Reports: no symptoms. All Other Systems: Reviewed and Negative Physical Exam Physical Exam General Appearance: SEE BELOW Neurological/Psychiatric: SEE BELOW Comments: General: Alert, calm, cooperative Head: Normocephalic, atraumatic Eyes: Normal inspection, no nystagmus, EOMI Ears: Normal inspection Nose: Normal inspection Throat: Moist mucosa Neck: Supple, no goiter Heart: Regular rate and rhythm, no murmurs rubs or gallops Lungs: Clear to auscultation bilaterally with good air entry Abdomen: Soft nontender nondistended, normal bowel sounds Chest: Nontender Extremities: Normal range of motion grossly, mild tremors present, no cyanosis clubbing or edema of the upper extremities Neurologic: cranial nerves II through XII grossly intact, speech clear, gait normal Psychiatric: No apparent delusions or hallucinations, no pressured speech or thought blocking, mildly depressed affect SAD PERSONS Done? patient not suicidal Progress Differential Diagnosis: drug intoxication, hypoglycemia, hypothyroidism, PSYCHIATRIC DISEASE Plan of Care: Orders Procedure Date/time Status URINE DRUGS OF ABUSE 08/07 1458 Complete ETHANOL 08/07 1429 Complete COMPREHENSIVE METABOLIC PANEL 08/07 1429 Complete CBC WITHOUT DIFFERENTIAL 08/07 1429 Complete Laboratory Tests 08/07/17 1604: Urine Opiates Screen < 100.00, Methadone Screen < 40, Barbiturate Screen < 60, Ur Phencyclidine Scrn < 6.00, Amphetamines Screen 262, U Benzodiazepines Scrn > 800 H, Urine Cocaine Screen < 50, Urine Cannabis Screen < 5.00 08/07/17 1434: Anion Gap 16, Estimated GFR > 60, BUN/Creatinine Ratio 20.0, Glucose 81, Calcium 10.5 H, Total Bilirubin 0.7, AST 16 L, ALT 10 L, Alkaline Phosphatase 60, Total Protein 7.8, Albumin 4.7, Globulin 3.1, Albumin/Globulin Ratio 1.5, CBC w Diff NO MAN DIFF REQ, RBC 4.65 L, MCV 92.6, MCH 32.1 H, MCHC 34.7, RDW 12.6, MPV 8.2, Gran % 77.9 H, Lymphocytes % 16.9 L, Monocytes % 2.6, Eosinophils % 2.1, Basophils % 0.5, Absolute Granulocytes 6.4, Absolute Lymphocytes 1.4, Absolute Monocytes 0.2, Absolute Eosinophils 0.2, Absolute Basophils 0, Serum Alcohol 11.0 Comments: Patient initially stated he did not have a psychiatrist but then recalled that he does see Dr. Del Cid on a regular basis. His last appointment was about 4 months ago. After history and physical examination the patient decided against emergency department evaluation or evaluation by the pizza maker. He states he will instead follow up with his psychiatrist and his primary care physician. This patient is alert and oriented to person place and time and current events. I feel he is capable of medical decision making. He denies SI or HI. Upon discharge from the emergency department he tends to go back home to care for his son (the patient lives with his and 3 children). Departure Departure Disposition: HOME OR SELF CARE Condition: Stable Clinical Impression Primary Impression: Depression Qualifiers: Depression Type: unspecified Qualified Code: F32.9 - Major depressive disorder, single episode, unspecified Referrals: Felton Kirkpatrick MD (PCP/Family) Additional Instructions: Continue your current medications. Follow-up with your primary care physician or psychiatrist this week. Return if any concerns or sudden worsening. Thank you for choosing the [facility] Emergency Department for your care. It was a pleasure to serve you today. Kai Weston M.D. [facility] Departure Forms: Customer Survey General Discharge Information
== END 2017-08-07 17:04 ==
LOC: ERH 14:23
PROVIDERS: Emergency Medicine
DX: F32.9 Major depressive disorder, single episode, unspecified (principal)
CPT/HCPCS: 80307; G0480

== ENCOUNTER 2018-01-20 21:07 | Emergency (ER) | payer OTHER ==
[~2018-01-20 21:07] MED LIST changes: +ESCITALOPRAM OX10 MG PO; +XARELTO20 M2 PO
--- NOTE | 2018-01-20 21:15 | ED PSYCHIATRIC COMPLAINT ---
History of Present Illness General Chief Complaint: ETOH/Drug Related Complaint Stated Complaint: BIBA ETOH DETOX Source: patient Exam Limitations: poor historian, intoxication Vital Signs & Intake/Output Vital Signs & Intake/Output Vital Signs Date Time Temp Pulse Resp B/P B/P Pulse O2 O2 Flow FiO2 Mean Ox Delivery Rate 01/20 2327 98.0 76 16 148/70 98 Room Air Room Air 01/20 2206 96 Room Air 01/20 2120 98.2 78 16 144/80 98 Room Air Room Air ED Intake and Output 01/21 0000 01/20 1200 Intake Total 0 Output Total Balance 0 Intake, Oral 0 Allergies Coded Allergies: No Known Allergies (01/20/18) Reconcile Medications Chlordiazepoxide HCl 25 MG CAPSULE 1 CAP PO BID PRN UNKNOWN (Reported) Rivaroxaban (Xarelto) 20 MG TABLET 1 TAB PO DAILY BLOOD THINNER (Reported) with food Triage Nurses Notes Reviewed? yes Onset: Abrupt Duration: unknown duration Timing: unknown HPI: 01/20/18 52-year-old male presents to the emergency department for alcohol intoxication. The patient states she has a history of alcohol abuse and admits to drinking today. He also has a history of A. fib and prior heart surgery. He denies any history of withdrawal seizures. Past History Travel History Traveled to [place] past 21 day No Medical History Any Pertinent Medical History? 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 MOTHER (HTN). Hx Contributory? No Review of Systems Review of Systems Constitutional: Denies: fever. EENTM: Denies: visual changes. Respiratory: Denies: short of breath. Cardiovascular: Denies: chest pain. GI: Denies: abdominal pain. Genitourinary: Reports: no symptoms. Musculoskeletal: Reports: no symptoms. Skin: Reports: no symptoms. Neurological/Psychological: Reports: see HPI. Hematologic/Endocrine: Reports: no symptoms. Immunologic/Allergic: Reports: no symptoms. Physical Exam Physical Exam General Appearance: alert, awake, anxious, mild distress Head: atraumatic, normal appearance Eyes: Bilateral: normal appearance, PERRL, EOMI. Ears, Nose, Throat: normal pharynx, normal ENT inspection Neck: normal inspection, supple, full range of motion Respiratory: normal breath sounds, chest non-tender, no respiratory distress Cardiovascular: regular rate/rhythm Gastrointestinal: non-tender Extremities: normal range of motion Neurological/Psychiatric: awake, alert, anxious Appearance/Memory/Insight: appropriate appearance Behavoir/Eye Contact/Speech: cooperative Thoughts/Hallucinations: no apparent hallucination Skin: intact, normal color, warm/dry SAD PERSONS SAD PERSONS Response Value Male Sex? yes 1 Age <19 or >45 years? yes 1 Excessive Ethanol/Drug Use? yes 1 Social Support? has support 0 Total 3 SAD PERSONS Done? yes, patient not suicidal Progress Differential Diagnosis: drug intoxication, drug overdose, drug withdrawal Plan of Care: Orders Procedure Date/time Status Add-on Test (ER Only) 01/20 2209 Active CIWA 01/20 2209 Active EKG 01/20 2209 Active TROPONIN LEVEL 01/20 2201 Active ETHANOL 01/20 2159 Active COMPREHENSIVE METABOLIC PANEL 01/20 2159 Active CBC WITHOUT DIFFERENTIAL 01/20 2159 Complete Laboratory Tests 01/20/182200: CBC w Diff NO MAN DIFF REQ, RBC 4.32 L, MCV 94.3 H, MCH 32.2 H, MCHC 34.2, RDW 15.3 H, MPV 8.2, Gran % 60.5, Lymphocytes % 32.4, Monocytes % 4.0, Eosinophils % 2.3, Basophils % 0.8, Absolute Granulocytes 2.6, Absolute Lymphocytes 1.4, Absolute Monocytes 0.2, Absolute Eosinophils 0.1, Absolute Basophils 0 Initial ED EKG: NSR Comments: 11:26 PM Patient declined any interest in detox at this time. He requested to leave . He was given a referral for outpatient services, his son took him home. He was ambulating with a steady gait, and his son was comfortable caring for him over the night. Departure Departure Disposition: HOME OR SELF CARE Condition: Stable Clinical Impression Primary Impression: Alcohol abuse Referrals: Felton Kirkpatrick MD (PCP/Family) Departure Forms: Customer Survey General Discharge Information
[2018-01-20 22:11] LABS: ABSOLUTE BASOPHIL COUNT 0 /CUMM (0.0-0.2); ABSOLUTE EOSINOPHIL COUNT 0.1 /CUMM (0.0-0.7); ABSOLUTE GRANULOCYTE CT 2.6 /CUMM (1.4-6.5); ABSOLUTE LYMPH COUNT 1.4 /CUMM (1.2-3.4); ABSOLUTE MONOCYTE COUNT 0.2 /CUMM (0.10-0.60); BASOPHIL % 0.8 % (0.0-2.0); EOSINOPHIL % 2.3 % (0-5); GRANULOCYTE % 60.5 % (42.2-75.2); HEMATOCRIT 40.7 % (42-52); MEAN CORPUSCULAR HGB 32.2 PG (27.0-31.0); MEAN CORPUSCULAR HGB CONC 34.2 G/DL (33.0-37.0); MEAN CORPUSCULAR VOLUME 94.3 FL (80.0-94.0); MEAN PLATELET VOLUME 8.2 FL (7.4-10.4); PLATELET COUNT 219 /CUMM (130-400); RBC DISTRIBUTION WIDTH 15.3 % (11.5-14.5); RED BLOOD CELL CT 4.32 /CUMM (4.70-6.10); WHITE BLOOD CELL COUNT 4.3 /CUMM (4.8-10.8)
[2018-01-20 23:27] VITALS: BP 148/70
== END 2018-01-20 23:30 ==
LOC: ERH 21:07
PROVIDERS: Emergency Medicine
DX: F10.10 Alcohol abuse, uncomplicated (principal)
CPT/HCPCS: 93005; 93010; G0480